=== PATIENT | female | born 1965 | race Caucasian/White ===

== ENCOUNTER → 2020-01-13 11:43 | Outpatient (BNVA) | payer BC, SELFPAY | PROVIDERS: Family Provider Internal Medicine; PCP Internal Medicine; Visit Provider Dermatology | DX: D48.9 Neoplasm of uncertain behavior, unspecified (principal) | CPT/HCPCS: 88304 ==

== ENCOUNTER 2023-05-19 10:57 | Inpatient (IN) | payer OTHER, SELFPAY ==
[2023-05-19] VITALS (19 sets, daily range): BP systolic 99–134; BP diastolic 65–96; PULSE 103–126; RESP 16–38; TEMP 36.3–36.5; O2SAT 90–98; BMI 48.2; BMI 48.4
--- NOTE | 2023-05-19 11:15 | XR_ITS ---
WS: [id number] Exam: XR chest 1V portable [id number] Date/Time of Exam: 05/19/2023 11:16 AM Reason For Exam: sob Comparison 05/06/2023. Cardiac enlargement unchanged. Less pulmonary vascular congestion than noted on the last exam. Small RIGHT basal pleural effusion. No pneumothorax. The mediastinum is normal in contour. Signs of previou s CABG surgery. An ICD superimposes the LEFT chest. Unremarkable bony structures. IMPRESSION: 1. Cardiac enlargement unchanged. Small RIGHT basal pleural effusion.
--- NOTE | 2023-05-19 11:21 | ED_ITS ---
HPI - General Adult 2 General: Chief complaint: General Medical Stated complaint: retaining fluid Time Seen by Provider: 05/19/23 11:13 Source: patient Mode of arrival: ambulatory Limitations: no limitations History of Present Illness: 57-year-old female who has a history of coronary artery disease along with A-fib states over the last 2 to 3 weeks she been retaining fluid. States she has gained 30 to 40 pounds she states her physician originally put her on 40 Lasix and upped it to 80 Lasix last week states she is still retaining fluid she had seen her physician Dr. Rose would send her to the ER for this. She has had some dyspnea especially activity she denies any chest pain she denies any fever cough does have a history of A-fib she is tachycardic here. Associated symptoms: Reports dyspnea; Deny chest pain, headache(s), nausea, rash or vomiting Review of Systems 2 Const: Denies: fever(s), chills, body aches or change in appetite ENMT: Denies: throat pain or dental pain Card: Denies: chest pain Resp: Reports: dyspnea; Denies: non-productive cough GI: Denies: abdominal pain, nausea, vomiting or diarrhea : Denies: dysuria Musc: Reports: extremity swelling; Denies: neck pain or back pain Skin/Breast: Denies: rash Neuro: Denies: headache(s) Psych: Denies: depression PFSH ED 2 PFSH: Medical History (Updated 05/19/23 @ 13:13 by Alva Rodriguez MD) H/O ventricular tachycardia Postoperative atrial fibrillation CAD (coronary artery disease) Diabetes Atrial fibrillation Ischemic cardiomyopathy Surgical History S/P CABG x 5 S/P ICD (internal cardiac defibrillator) procedure Family History Other CAD (coronary artery disease) Diabetes Social History Smoking and tobacco/nicotine status: former use of tobacco/nicotine Quit status (tobacco/nicotine): has quit using Year quit tobacco: 1988 Former quit date comment: 1/4 pack per day x 1 year Alcohol intake: never Substance/Drug Use: never Physical Exam 2 Const: COMMON NORMALS: patient oriented x3 GENERAL APPEARANCE: ill appearing HENMT: COMMON NORMALS: normocephalic and atraumatic HEAD & SCALP: n ormocephalic and atraumatic Eye: COMMON NORMALS: conjunctivae normal CONJUNCTIVA: Yes conjunctivae normal Neck/C-Spine: COMMON NORMALS: full ROM and supple Chest: COMMONS NORMALS: normal inspection of the chest Resp: COMMON NORMALS: normal respiratory effort, No retractions, No use of accessory muscles and clear to auscultation bilaterally AUSCULTATION: clear to auscultation bilaterally Cardio: COMMON NORMALS: No murmurs present (Cardio) RATE: tachycardic R HYTHM: abnormal rhythm irregularly irregular GI: COMMON NORMALS: Normal to inspection, nondistended, normoactive bowel sounds present, Soft to palpation, non-tender and no masses PALPATION: Yes Soft to palpation Extremity: COMMON NORMALS: full ROM NARRATIVE EXTREMITY EXAM: 2+ edema le Neuro: COMMON NORMALS: patient oriented x3, moves all extremities and no focal motor deficits Psych: COMMON NORMALS: mental status grossly normal, Normal thought process present and cooperative THOUGHT PROCESS: Normal thought process present Skin: COMMON NORMALS: no rashes or lesions noted and no wounds GENERAL SKIN EXAM: no rashes or lesions noted Course 2 Vital Signs: Vital signs: Vital Signs Temperature 97.3 F L 05/19/23 11:05 Pulse Rate 119 H 05/19/23 11:59 Respiratory Rate 20 H 05/19/23 11:21 Blood Pressure 118/96 05/19/23 11:59 Pulse Oximetry 97 05/19/23 11:59 Oxygen Delivery Me thod Room Air 05/19/23 11:59 MDM - General Adult Medical Decision Making Patient was with increasing fluid retention does have an elevated BNP likely CHF she is also in A-fib with RVR she is started on amiodarone drip. Was given IV Lasix I spoke to the hospitalist will admit at this time. Medical Records I reviewed the patient's medical records. Lab Data I reviewed the patient's lab results. 05/19/23 11:31 05/19/23 11:31 Laboratory Results WBC 8.34 10^3/uL (3.29-11.43) 05/19/23 11:31 RBC 4.83 10^6/uL (3.85-5.65) 05/19/23 11:31 Hgb 14.00 g/dL (11.27-16.99) 05/19/23 11:31 Hct 43.6 % (36-47) 05/19/23 11:31 MCV 90.3 fl (85-98) 05/19/23 11:31 MCH 29.0 pg (27-33) 05/19/23 11:31 MCHC 32.1 g/dL (30-55) 05/19/23 11:31 RDW 17.0 % (12.1-15.1) H 05/19/23 11:31 Plt Count 250 10^3/cmm (157-399) 05/19/23 11:31 MPV 9.4 fL (7.4-10.4) 05/19/23 11:31 Neut % (Auto) 78.2 % 05/19/23 11:31 Lymph % (Auto) 13.1 % 05/19/23 11:31 [place] % (Auto) 7.3 % 05/19/23 11:31 Eos % (Auto) 0.6 % 05/19/23 11:31 Baso % (Auto) 0.6 % 05/19/23 11:31 Neut # (Auto) 6.52 10^3/uL (1.8-7.7) 05/19/23 11:31 Lymph # (Auto) 1.1 10^3/uL (0.8-4.8) 05/19/23 11:31 [place] # (Auto) 0.6 10^3/uL (0.2-0.9) 05/19/23 11:31 Eos # (Auto) 0.1 10^3/uL (0.0-0.8) 05/19/23 11:31 Baso # (Auto) 0.1 10^3/uL (0.0-0.1) 05/19/23 11:31 Nucleated RBC % (auto) 0 % 05/19/23 11:31 Nucleated RBCs # 0.0 /100WBC 05/19/23 11:31 PT 15.70 SECONDS (12.1-14.9) H 05/19/23 11:31 INR 1.21 (0.8-1.2) H 05/19/23 11:31 Sodium 137 mmol/L (136-145) 05/19/23 11:31 Potassium 4.1 mmol/L (3.5-5.1) 05/19/23 11:31 Chloride 97 mmol/L (98-107) L 05/19/23 11:31 Carbon Dioxide 21 mmol/L (22-29) L 05/19/23 11:31 Anion Gap 23.1 (5-19) H 05/19/23 11:31 BUN 26 mg/dL (6-20) H 05/19/23 11:31 Creatinine 1.1 mg/dL (0.5-0.9) H 05/19/23 11:31 GFR Calculation 51.6 mL/min (90-130) L 05/19/23 11:31 Glucose 155 mg/dL (65-115) H 05/19/23 11:31 Calculated Osmolality 292 mOsm/kg (285-295) 05/19/23 11:31 Calcium 9.0 mg/dL (8.5-10.5) 05/19/23 11:31 Total Bilirubin 0.7 mg/dL (0.15-1.2) 05/19/23 11:31 AST 18 U/L (0-32) 05/19/23 11:31 ALT 12 U/L (0-33) 05/19/23 11:31 Alkaline Phosphatase 69 U/L (35-105) 05/19/23 11:31 Troponin T Baseline 32 ng/L (0-10) H 05/19/23 11:31 NT-Pro-B Natriuret Pep 7379 pg/mL (0-125) H 05/19/23 11:31 Total Protein 6.7 g/dL (6.6-8.7) 05/19/23 11:31 Albumin 3.9 g/dL (3.5-5.2) 05/19/23 11:31 Globulin 2.8 g/dL (1.3-4.6) 05/19/23 11:31 All radiology interpretation(s) finalized by discharge EKG Data EKG 1: I personally reviewed and interpreted this EKG as follows: EKG interpretation date: 05/19/23 EKG interpretation time: 11:25 Interpretation: atrial fib rvr hr [address] elevatin qrs 130 qtc 417 Critical Care Time 2 Critical Care Time: Critical Care Time: Yes Total Critical Care Time: 40 Attestation: The high probability of a clinically significant, sudden or life threatening deterioration of the patient's cv system(s) required my full and direct attention, intervention and personal management. The critical care time is as shown. This time is in addition to time spent performing any reported procedures but includes the following: [x] Data and vital sign review and interpretation [x] Patient assessment, examination and intervention [x] Documentation [x] Medication orders and management Discharge Plan Discharge Patient Disposition: Admitted As Inpatient Admit Provider: Angela Mcgraw Clinical Impression: Atrial fibrillation, CHF (congestive heart failure) Condition: Stable Coding Level of Care Code ED Mathematics Improvement Teacher for Vasquez Robledo
--- NOTE | 2023-05-19 11:25 | ECG_ITS ---
[facility] Test Date: 2023-05-19 Pat Name: Swati Castaneda Department: Room: Gender: Female Pigment Mixer: : 1965 Requested By: Alva Rodriguez Order Number: [id number] Feliciano MD: Yesi Colin M.D. Measurements Intervals [place] Rate: 122 P: 0 [place]: 0 QRS: 29 QRSD: 130 T: 264 QT: 344 QTc: 491 Interpretive Statements ATRIAL FLUTTER/TACHYCARDIA WITH RAPID VENTRICULAR RESPONSE MODERATE INTRAVENTRICULAR CONDUCTION DELAY [110+ ms QRS DURATION] ABNORMAL QRS-T ANGLE [QRS-T AXIS DIFFERENCE > 60] Compared to ECG 06/12/2018 09:06:39 Intraventricular conduction delay now present Sinus rhythm no longer present Ventricular premature complex(es) no longer present Myocardial infarct finding no longer present Electronically Signed On 05-20-2023 0:37:30 STOCK CHASER by Yesi Colin M.D. [id number]
[2023-05-19 11:41] LABS: Basophils # 0.1 10^3/uL (0.0-0.1); Basophils % 0.6 %; Eosinophils # 0.1 10^3/uL (0.0-0.8); Eosinophils % 0.6 %; Hematocrit 43.6 % (36-47); Lymphocytes # 1.1 10^3/uL (0.8-4.8); Lymphocytes % 13.1 %; Mean Corpuscular HGB Conc 32.1 g/dL (30-55); Mean Corpuscular Volume 90.3 fl (85-98); Mean Platelet Volume 9.4 fL (7.4-10.4); Monocytes # 0.6 10^3/uL (0.2-0.9); Monocytes % 7.3 %; Neutrophils # 6.52 10^3/uL (1.8-7.7); Neutrophils % 78.2 %; Nucleated Red Blood Cells % 0 %; Platelet Count 250 10^3/cmm (157-399); Red Blood Count 4.83 10^6/uL (3.85-5.65); White Blood Count 8.34 10^3/uL (3.29-11.43)
--- NOTE | 2023-05-19 11:45 | PC.PHAR ---
pt and pts states the pt just started the lasix 80mg daily on sat 05/17/23 rx filled 05/16/23 5d/s- pt was on 40mg daily filled 05/06/23 14d/s-pt states hasnt taken her otc meds for 2-3 weeks-pt states she hasnt taken her apsirin 81mg daily for 2 months or more-
[2023-05-19 11:51] LABS: INR 1.21 (0.8-1.2)
[2023-05-19 11:57] LABS: Troponin(5th) Baseline 32 ng/L (0-10)
[2023-05-19] MEDS: FUROsemide 10 mg/mL SDV 10mL 60 MG IVP (12:31)
[2023-05-19 12:37] LABS: Alanine Aminotransferase 12 U/L (0-33); Albumin Level 3.9 g/dL (3.5-5.2); Alkaline Phosphatase 69 U/L (35-105); Anion Gap 23.1 (5-19); Aspartate Amino Transferase 18 U/L (0-32); Blood Urea Nitrogen 26 mg/dL (6-20); Carbon Dioxide 21 mmol/L (22-29); Chloride 97 mmol/L (98-107); Creatinine Clr Calc Pharmacy 76.4496; Globulin 2.8 g/dL (1.3-4.6); Glomerular Filtration Rate 51.6 mL/min (90-130); Glucose 155 mg/dL (65-115); Osmolality Calculated 292 mOsm/kg (285-295); Potassium 4.1 mmol/L (3.5-5.1); Sodium 137 mmol/L (136-145); Total Bilirubin 0.7 mg/dL (0.15-1.2); Total Protein 6.7 g/dL (6.6-8.7)
[2023-05-19] MEDS: amiodarone 150 MG/100 ML PREMIX 400 MG IV (12:38)
[2023-05-19 12:41] LABS: NT Pro B Type Natriuretic Pept 7379 pg/mL (0-125)
--- NOTE | 2023-05-19 13:22 | ECG_ITS ---
[facility] Test Date: 2023-05-19 Pat Name: Swati Castaneda Department: Room: 101 Gender: Female Security Operations Manager: : 1965 Requested By: Alva Rodriguez Order Number: [id number] Feliciano MD: Yesi Colin M.D. Measurements Intervals Wayne Rate: 115 P: 40 HI: 135 QRS: 18 QRSD: 133 T: 239 QT: 372 QTc: 516 Interpretive Statements SINUS TACHYCARDIA WITH OCCASIONAL VENTRICULAR PREMATURE COMPLEXES INTRAVENTRICULAR CONDUCTION DELAY [130+ ms QRS DURATION] Compared to ECG 05/19/2023 11:25:57 Ventricular premature complex(es) now present Atrial flutter no longer present Electronically Signed On 05-20-2023 1:00:42 FIELD CROP FARMER by Yesi Colin M.D. [id number]
[2023-05-19 13:49] LABS: Troponin 5 2HR 30.31 ng/L (0-10)
[2023-05-19 13:50] LABS: Troponin 5 2HR Delta -1.69 ABS# (0-10)
--- NOTE | 2023-05-19 14:19 | P.HP_ITS ---
Providers/Chief Complaint 2 Admitting Physician: Angela Mcgraw MD Primary Care Provider: Rc Rose DO Chief Complaint: retaining fluid History of Present Illness Swati Castaneda is a 57 year old female with past medical history of CAD, CABG x 5, EF 45 to 50%, CHF systolic, ICD in place, history of atrial fibrillation that was postop transient and did not recur thereafter presented to the hospital today with complaint of shortness of breath. She was given 60 Lasix IV in the ER. Appeared fluid overloaded and was dyspneic however not hypoxic. BNP 7300. Patient was started on amiodarone drip. Admitted to cardiac stepdown unit for further management. Patient seen in her room at this time resting comfortably in bed. No acute distress. She states that for the last 2 to 3 weeks she feels she is retaining fluid. She has gained almost 30 pounds. She saw her primary care doctor who put her on Lasix 40 daily and recently increased it to 80 last week however she says she is still retaining fluid. She went to see her primary care doctor and she was sent to the ER thereafter. Medications/Allergies Home Medications Medication Instructions Recorded Confirmed Last Taken Type magnesium oxide 250 mg PO BEDTIME 09/16/22 05/19/23 3 Weeks Ago History ~04/28/23 albuterol sulfate 90 mcg/actuation 2 puff inhalation QID PRN 05/19/23 05/19/23 2 Weeks Ago History aerosol inhaler Shortness Of Breath ~05/05/23 ascorbic acid (vitamin C) 500 mg 500 mg PO DAILY 05/19/23 05/19/23 2 Weeks Ago History tablet (Vitamin C) ~05/05/23 furosemide 80 mg tablet (Lasix) 80 mg PO QAM 05/19/23 05/19/23 05/19/23 History started sat 05/17/23 potassium chloride 20 mEq 20 meq PO QAM 05/19/23 05/19/23 05/19/23 History tablet,extended release zinc acetate 50 mg (zinc) capsule 50 mg PO DAILY 05/19/23 05/19/23 2 Weeks Ago History ~05/05/23 Allergies Allergy/AdvReac Type Severity Reaction Status Date / Time Penicillins Allergy ALGY-Rash Verified 05/19/23 11:04 PFSH Acute 2 PFSH: Medical History (Updated 02/26/24 @ 14:37 by Angela Mcgraw MD) H/O ventricular tachycardia Postoperative atrial fibrillation CAD (coronary artery disease) Diabetes Atrial fibrillation Ischemic cardiomyopathy Surgical History S/P CABG x 5 S/P ICD (internal cardiac defibrillator) procedure Family History Other CAD (coronary artery disease) Diabetes Social History Smoking and tobacco/nicotine status: former use of tobacco/nicotine Quit status (tobacco/nicotine): has quit using Year quit tobacco: 1988 Former quit date comment: 1/4 pack per day x 1 year Alcohol intake: never Substance/Drug Use: never Vitals/I&O/Wt Last Vital Signs Temp 97.3 F L 05/19/23 14:08 Pulse 114 H 05/19/23 14:08 Resp 20 H 05/19/23 14:08 BP 119/75 05/19/23 14:08 Pulse Ox 94 05/19/23 14:08 O2 Del Method Room Air 05/19/23 13:11 05/18/23 05/19/23 05/19/23 22:59 06:59 14:59 Intake Total 100 / 100 Balance 100 / 100 Weight last 48 hrs Weight 127.941 kg Weight 127.459 kg Physical Exam 2 Narrative: General: Alert oriented x3, patient seen in bed resting comfortably HEENT: Normocephalic, atraumatic, EOMI, breathing room air Cardio: Irregularly irregular, tachycardic normal S1-S2, Respiratory: Mild crackles at bases bilaterally GI: Abdomen soft, nontender, nondistended, bowel sounds + Behavior: Appropriate and cooperative Extremities: 2+ pitting edema bilateral lower extremities Urinary Catheter Management: [place]: Cath Placed During This Visit: yes Urinary Catheter Date of Insertion: 05/19/23 Urinary Catheter Time of Insertion: 12:57 Data 05/19/23 11:31 05/19/23 11:31 A&P Assessment and plan (1) CHF (congestive heart failure): (2) CAD (coronary artery disease): Qualifiers: Associated angina: without angina Coronary Disease-Associated Artery/Lesion type: bypass graft [place] vs. transplanted heart: [place] heart Qualified Code(s): I25.810 - Atherosclerosis of coronary artery bypass graft(s) without angina pectoris (3) Atrial fibrillation: (4) ICD (implantable cardioverter-defibrillator) in place: (5) Ischemic cardiomyopathy: (6) Diabetes: (7) Chronic kidney disease: (8) High anion gap metabolic acidosis: Plan #A-fib with RVR #History of CAD, CABG x 5 #Acute on chronic congestive systolic heart failure #Diabetes mellitus type 2 #History of postop atrial fibrillation #History of ventricular tachycardia, ICD in place. #CKD, baseline creatinine unknown ? Creatinine 1.1 today. Continue to monitor. ? Check echo ? Continue amiodarone drip ? Check potassium, magnesium ? Received Lasix 60 IV x 1 in ER ? Placed on Lasix 40 IV twice daily ? Check BMP daily. Lasix put patient on high risk for hypokalemia. Will need to monitor ? Check TSH ? BNP 7300. On admission ? Check urinalysis, ? DuoNeb every 6 6 hours as needed ? Check procalcitonin ? Anion gap elevated at 23.1. I will check lactic acid. Bicarb is 21. ? Chest x-ray does show evidence of pulmonary vascular congestion. No true infiltrate seen ? Sliding scale insulin low-dose intensity ? Cardiac diabetic diet ? Placed on therapeutic Lovenox at this time. She will need to be transition to Eliquis at discharge Full code DVT prophylaxis: On therapeutic Lovenox Attestations 2 Medical Necessity Statement*: Requires inpatient hospitalization for atrial fibrillation with RVR and high anion gap Diagnoses CHF (congestive heart failure) I50.9 Coronary artery disease involving coronary bypass graft of [place] heart without angina pectoris I25.810 Associated angina: without angina Coronary Disease-Associated Artery/Lesion type: bypass graft [place] vs. transplanted heart: [place] heart Atrial fibrillation I48.91 ICD (implantable cardioverter-defibrillator) in place Z95.810 Ischemic cardiomyopathy I25.5 Diabetes E11.9 Chronic kidney disease N18.9 High anion gap metabolic acidosis E87.29
--- NOTE | 2023-05-19 14:25 | PC.NURSE ---
hospitalist notified on pt's arrival from ER Pt arrived from ER with Amio drip running at 1 mg/hr per protocol. Pt denies any chest pain or discomfort. generalized swelling and leg swelling noted. [place] catheter intact and flowing. call light provided to pt. at bedside.
[2023-05-19] MEDS: enoxaparin 150 mg/mL Syringe 130 MG SUBCUT (14:43)
[2023-05-19 14:58] LABS: Estmated Average Glucose 154
[2023-05-19 15:01] LABS: Lactic Sepsis W/Reflex 2.7 mmol/L (0.5-2.2)
--- NOTE | 2023-05-19 15:10 | USCV_ITS ---
Swati Castaneda Age: 57 Gender: F : 1965 Exam Date: 05/19/2023 19:28 Ordering Phys: Angela Mcgraw MD Technologist: TAMEKA [place]am [place] [facility] [place] [facility] [place] Indication: Heart failure, history of CAD s/p CABG and pacer, defibrillator 2016. BP: 134 / 89 HR: 103 Rhythm: Atral fibrillation Technical Quality: Adequate MEASUREMENTS (Male / Female) Normal Values 2D ECHO LV Diastolic Diameter PLAX 5.5 cm 4.2 - 5.9 / 3.9 - 5.3 cm IVS Diastolic Thickness 1.1 cm 0.6 - 1.0 / 0.6 - 0.9 cm IVS Systolic Thickness 0.9 cm LVPW Diastolic Thickness 1.1 cm 0.6 - 1.0 / 0.6 - 0.9 cm LVPW Systolic Thickness 1.2 cm LVOT Diameter 1.7 cm LV Ejection Fraction 2D Teich 5.5 % LV Ejection Fraction MOD 2C 11.0 % LV Ejection Fraction 2C AL 0.0 % LA Diameter 4.6 cm Aorta at Sinotubular Diameter 2.9 cm IVC Diameter 2.4 cm M-MODE LA Ao Ratio MM 1.4 AV Cusp Separation MM 1.7 cm DOPPLER AV Peak Velocity 93.0 cm/s LVOT Peak Velocity 49.0 cm/s AV Area Cont Eq vti 1.1 cm squared AV Area Cont Eq pk 1.2 cm squared MV Peak Velocity 107.0 cm/s MV Area PHT 6.1 cm squared Mitral E to A Ratio 0.0 TV Peak Velocity 276.5 cm/s TR Peak Velocity 304.0 cm/s TR Peak Gradient 37.0 mmHg TV Peak E Velocity 97.0 cm/s Right Atrial Pressure 10.0 mmHg Pulmonary Artery Systolic Pressu 47.0 mmHg PV Peak Velocity 60.0 cm/s FINDINGS Left Ventricle Left ventricle is dilated. LV systolic function is severely reduced with EF of 10-15%. Severe global hypokinesis. Right Ventricle Grossly hypokinetic. Pacemaker lead seen. Right Atrium Normal in size Left Atrium Dilated Mitral Valve Structurally normal mitral valve. Moderate mitral regurgitation. Aortic Valve Structurally normal aortic valve. No significant stenosis. Trace aortic regurgitation. Tricuspid Valve Moderate to severe tricuspid regurgitation. RVSP is 45 to 40 mmHg. This is consistent with moderate pulmonary hypertension. Pulmonic Valve Not well visualized Pericardium Pleural effusion is noted Aorta Normal in size IVC Appears dilated CONCLUSIONS Left ventricle is dilated. LV systolic function is severely reduced with EF of 10 to 15%. Grossly hypokinetic RV. Left atrial dilation Moderate mitral regurgitation Moderate to severe tricuspid regurgitation. Moderate pulmonary hypertension Pleural effusion is noted IVC appears dilated Compared to prior echocardiogram from 2017, LV systolic function has decreased significantly and is severely reduced. Khanh Lamb MD (Electronically Signed) Final Date: 20 May 2023 10:52 S
[2023-05-19 15:11] LABS: Procalcitonin 0.06 ng/mL (0-0.5); Thyroid Stimulating Hormone 2.19 uIU/mL (0.27-4.20)
--- NOTE | 2023-05-19 15:13 | CTR_ITS ---
PROCEDURE INFORMATION: Exam: CT Chest Without Contrast; Diagnostic Exam date and time: 05/19/2023 3:33 PM Age: 57 years old Clinical indication: Other: Retaining fluid, elevated lactic acid TECHNIQUE: Imaging protocol: Diagnostic computed tomography of the chest without contrast. Radiation optimization: All CT scans at this facility use at least one of these dose optimization techniques: automated exposure control; mA and/or kV adjustment per patient size (includes targeted exams where dose is matched to clinical indication); or iterative reconstruction. COMPARISON: CR XR chest 1V portable [id number] 05/19/2023 11:37 AM RADIATION DOSE METRICS: Total DLP (mGy-cm): 1382.19 FINDINGS: Tubes, catheters and devices: Cardiac ICD/pacemaker. Thyroid: No significant thyroid pathology. Lungs: Atelectasis is present in the lower lobe subjacent to the effusions. Mild apical septal thickening and vascular congestion. Pleural spaces: Moderate bilateral pleural effusions. Heart: Localized area of the left ventricular calcifications present mild bulging of the ventricular wall as seen on series 3, image 40. Cardiomegaly. Coronary arteries: Coronary artery calcifications. Lymph nodes: Mediastinal lymphadenopathy is present. Precarinal lymph nodes measuring 1.9 cm short axis. Mild right hilar adenopathy measuring up to 1.2 cm short axis. No left hilar or axillary lymphadenopathy. Vasculature: No evidence of thoracic aortic aneurysm. Bones/joints: Prior median sternotomy. Soft tissues: Unremarkable. PROCEDURE INFORMATION: Exam: CT Abdomen And Pelvis Without Contrast Exam date and time: 05/19/2023 3:33 PM Age: 57 years old Clinical indication: Other: Retaining fluid, elevated lactic acid TECHNIQUE: Imaging protocol: Computed tomography of the abdomen and pelvis without contrast. Radiation optimization: All CT scans at this facility use at least one of these dose optimization techniques: automated exposure control; mA and/or kV adjustment per patient size (includes targeted exams where dose is matched to clinical indication); or iterative reconstruction. COMPARISON: CR XR chest 1V portable [id number] 05/19/2023 11:37 AM RADIATION DOSE METRICS: Total DLP (mGy-cm): 1382.19 FINDINGS: Lungs: Visualized lung bases are free of significant pathology. Diaphragm: Small hiatal hernia. Liver: Hepatic steatosis. Gallbladder and bile ducts: Cholelithiasis. No biliary dilatation. Pancreas: No significant pancreatic pathology. Spleen: No significant splenic pathology. Adrenal glands: No significant adrenal pathology. Kidneys and ureters: No significant renal pathology. Stomach and bowel: No significant pathology. Appendix: No appendiceal pathology evident. Intraperitoneal space: Moderate abdominopelvic ascites. Vasculature: No abdominal aortic aneurysm. Lymph nodes: Mild right inguinal lymphadenopathy measuring 1.3 cm short axis. Borderline sized left inguinal lymph node. Urinary bladder: Urinary bladder is decompressed by [place] catheter limiting assessment of the wall. Reproductive: No significant uterine pathology. No significant adnexal pathology. Bones/joints: Mild degenerative change present in the spine. Soft tissues: Anasarca. CT/[place] [id number] IMPRESSION: 1. Findings compatible with congestive failure and/or fluid overload. Moderate bilateral pleural effusions. 2. Mediastinal and right hilar lymphadenopathy. 3. Focal area of left ventricular wall calcification and contour abnormality suggesting prior infarct. Clinical correlation recommended. IMPRESSION: 1. No acute pathology. 2. Anasarca with moderate abdominopelvic ascites. 3. Hepatic steatosis. 4. Cholelithiasis. 5. Mild right and borderline left inguinal lymphadenopathy.
[2023-05-19 15:22] LABS: Cholesterol 159 mg/dL (0-200); HDL Cholesterol 37 mg/dL (60-100); LDL Cholesterol Calculated 96 mg/dL (50-129); LDL HDL Ratio 2.59 RATIO (0.00-3.22); Magnesium 1.9 mg/dL (1.7-2.3); Triglycerides 128 mg/dL (0-150)
[2023-05-19 16:30] LABS: Reflex Lactate Order REFLEX LACTIC ORDERD
[2023-05-19 17:22] LABS: Lactic Acid level (Lactate) 2.9 mmol/L (0.5-2.2)
[2023-05-19 18:35] LABS: Troponin 5 6HR 37.25 ng/L (0-10); Troponin 5 6HR Delta 5.25 ng/L (0-12)
--- NOTE | 2023-05-19 21:30 | PC.NURSE ---
At change of shift patient was noted to have bloody urine in meyer catheter bag. Patient states when she went for CAT scan her meyer had gotten tugged. Nurse had discussed monitoring urine to see if it clears or if it didnt might need to be irrigated. At this time patient stated she has the urge to urinate and feels pressure but is unable, states this started after meyer got tugged. Before meyer was tugged patient states there was no pressure or urge. Nurse attempted to reposition and advance catheter but were unable, meyer removed at this time due to discomfort. Patient asking nurse to leave meyer out. Nurse told patient she can get OOB to commode and we will measure urine output, if she is unable to urinate after next lasix dose her meyer catheter may need to be reinserted. Patient agrees with plan.
--- NOTE | 2023-05-19 22:16 | ECG_ITS ---
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 Measurements Intervals [place] Rate: 102 P: 3 DC: 124 QRS: 9 QRSD: 137 T: 179 QT: 407 QTc: 532 Interpretive Statements SINUS TACHYCARDIA INTRAVENTRICULAR CONDUCTION DELAY [130+ ms QRS DURATION] Compared to ECG 05/19/2023 13:22:18 Ventricular premature complex(es) no longer present Electronically Signed On 05-20-2023 0:44:22 LAP RUNNER by Yesi Colin M.D. [email or web address] Artsadena [email or web address] [email or web address]/store/[id number]
--- NOTE | 2023-05-19 22:20 | PC.NURSE ---
called and spoke with nurse regarding patients heart rate. Patient had converted to SR but is still tachycardia. said get EKG to confirm if patient converted to SR. If patient is still in afib give one time dose of digoxin but if patient is in SR do not give. Nurse did confirm with EKG patient is in SR so digoxin was not given. Cardiology consult was also ordered.
[2023-05-19] MEDS: FUROsemide 10 mg/mL SDV 4mL 40 MG IVP (22:21)
[2023-05-20] VITALS (32 sets, daily range): BP systolic 97–138; BP diastolic 53–92; PULSE 88–119; RESP 16–38; TEMP 36.3–37.2; O2SAT 88–100
[2023-05-20 00:13] LABS: Urine Color Brown (Yellow)
[2023-05-20 00:14] LABS: Add Urine Microscopic? YES; Bilirubin Urine Neg (Negative); Blood Urine 3+ (Negative); Glucose Urine UA Norm (Normal); Ketones Urine 1+ (Negative); Leukocyte Esterase Urine Negative (Negative); Nitrate Urine Negative (Negative); Protein Urine 3+ (Negative); Specific Gravity, Urine 1.025 (1.005-1.030); Urine Appearance Turbid (CLEAR); Urobilinogen Urine Norm (Negative); pH Urine 5 (5-7)
[2023-05-20 00:15] LABS: Bacteria Urine 1+ /hpf; RBC Urine TOO NUMEROUS TO CNT /hpf (0-2); Squamous Epithelial Cell Urine 0-4 /hpf (0-5); WBC Urine 0-4 /hpf (0-5)
[2023-05-20 00:17] LABS: Add Urine Culture? Yes
--- NOTE | 2023-05-20 02:30 | PC.NURSE ---
Patient only urinated 225 since administration of IV lasix. Last two attempts only voided 75ml and than 50ml at a time. Nurse discussed with patient reinserting the meyer catheter to ensure bladder is emptying. Bladder scan not attempted due to patient body habbitus and anasarca. Meyer was reinserted using aseptic technique, blood tinged urine returned. Patient denied any discomfort.
[2023-05-20] MEDS: enoxaparin 150 mg/mL Syringe 130 MG SUBCUT ×2 (03:44→15:32)
[2023-05-20 05:16] LABS: Basophils # 0.1 10^3/uL (0.0-0.1); Basophils % 0.6 %; Eosinophils # 0.1 10^3/uL (0.0-0.8); Eosinophils % 0.6 %; Hematocrit 39.7 % (36-47); Lymphocytes # 1.5 10^3/uL (0.8-4.8); Lymphocytes % 18.3 %; Mean Corpuscular HGB Conc 32.2 g/dL (30-55); Mean Corpuscular Hemoglobin 29.1 pg (27-33); Mean Corpuscular Volume 90.2 fl (85-98); Mean Platelet Volume 9.3 fL (7.4-10.4); Monocytes # 0.8 10^3/uL (0.2-0.9); Neutrophils # 5.81 10^3/uL (1.8-7.7); Neutrophils % 69.9 %; Nucleated Red Blood Cells % 0 %; Platelet Count 225 10^3/cmm (157-399); Red Cell Distribution Width 17.2 % (12.1-15.1); White Blood Count 8.31 10^3/uL (3.29-11.43)
[2023-05-20 05:39] LABS: Alanine Aminotransferase 12 U/L (0-33); Albumin Level 3.5 g/dL (3.5-5.2); Alkaline Phosphatase 53 U/L (35-105); Anion Gap 20.5 (5-19); Aspartate Amino Transferase 18 U/L (0-32); Blood Urea Nitrogen 26 mg/dL (6-20); Calcium 8.5 mg/dL (8.5-10.5); Carbon Dioxide 23 mmol/L (22-29); Chloride 99 mmol/L (98-107); Creatinine Clr Calc Pharmacy 65.6688; Globulin 2.8 g/dL (1.3-4.6); Glomerular Filtration Rate 42.5 mL/min (90-130); Glucose 144 mg/dL (65-115); Osmolality Calculated 295 mOsm/kg (285-295); Potassium 3.5 mmol/L (3.5-5.1); Sodium 139 mmol/L (136-145); Total Bilirubin 0.5 mg/dL (0.15-1.2); Total Protein 6.3 g/dL (6.6-8.7)
[2023-05-20 05:44] LABS: NT Pro B Type Natriuretic Pept 9304 pg/mL (0-125)
--- NOTE | 2023-05-20 08:26 | P.CONIM_ITS ---
Providers/Reason For Consult 2 Consulting Physician/Specialty*: Khanh Lamb MD/ Cardiology Reason for Consult*: Congestive heart failure Requesting Physician: Dr Mcgraw Attending Physician: Angela Mcgraw MD Primary Care Provider: Rc Rose DO History of Present Illness History of Present Illness Swati Castaneda is a 57 year old female with past medical history of CAD s/p CABG x 5, ICD in place, systolic congestive heart failure last known EF of 45 to 50% presented to hospital with shortness of breath. Also was feeling palpitations. Telemetry currently shows sinus tachycardia. 1 EKG is suspicious for possible atrial flutter. Patient did have history of postop atrial fibrillation. Echo performed during this admission is showing severely reduced LV systolic function with EF of 10-15 %. He denies chest pain. NT proBNP is worse over 7000. Troponins have not trended up Review of Systems 2 Const: Denies: fever(s), chills, body aches or change in appetite ENMT: Denies: throat pain or dental pain Card: Denies: chest pain Resp: Reports: dyspnea; Denies: non-productive cough GI: Denies: abdominal pain, nausea, vomiting or diarrhea : Denies: dysuria Musc: Reports: extremity swelling; Denies: neck pain or back pain Skin/Breast: Denies: rash Neuro: Denies: headache(s) Psych: Denies: depression Medications/Allergies Home Medications Medication Instructions Recorded Confirmed Last Taken Type magnesium oxide 250 mg PO BEDTIME 09/16/22 05/19/23 3 Weeks Ago History ~04/28/23 albuterol sulfate 90 mcg/actuation 2 puff inhalation QID PRN 05/19/23 05/19/23 2 Weeks Ago History aerosol inhaler Shortness Of Breath ~05/05/23 ascorbic acid (vitamin C) 500 mg 500 mg PO DAILY 05/19/23 05/19/23 2 Weeks Ago History tablet (Vitamin C) ~05/05/23 furosemide 80 mg tablet (Lasix) 80 mg PO QAM 05/19/23 05/19/23 05/19/23 History started sat 05/17/23 potassium chloride 20 mEq 20 meq PO QAM 05/19/23 05/19/23 05/19/23 History tablet,extended release zinc acetate 50 mg (zinc) capsule 50 mg PO DAILY 05/19/23 05/19/23 2 Weeks Ago History ~05/05/23 Allergies Allergy/AdvReac Type Severity Reaction Status Date / Time Penicillins Allergy ALGY-Rash Verified 05/19/23 11:04 Current Medications Generic Name Dose Route Start Last Admin Trade Name Nadine PRN Reason Stop Dose Admin Enoxaparin Sodium 130 mg 05/19/23 14:30 05/20/23 03:44 Enoxaparin 150 Mg/Ml Syringe SUBCUT 130 mg Q12H DENA Administration Amiodarone HCl/Dextrose 360 mg in 200 mls @ 0 mls/hr 05/19/23 11:34 05/20/23 06:53 Nexterone IV 0.5 mg/min .Q0M DENA 16.67 mls/hr Administration Protocol Per Protocol PFSH Acute 2 PFSH: Medical History H/O ventricular tachycardia Postoperative atrial fibrillation CAD (coronary artery disease) Diabetes Atrial fibrillation Ischemic cardiomyopathy Surgical History S/P CABG x 5 S/P ICD (internal cardiac defibrillator) procedure Family History Other CAD (coronary artery disease) Diabetes Social History Smoking and tobacco/nicotine status: former use of tobacco/nicotine Quit status (tobacco/nicotine): has quit using Year quit tobacco: 1988 Former quit date comment: 1/4 pack per day x 1 year Alcohol intake: never Substance/Drug Use: never Vitals/I&O/Wt Last Vital Signs Temp 97.4 F L 05/20/23 07:20 Pulse 98 05/20/23 07:20 Resp 18 05/20/23 07:20 BP 101/80 05/20/23 07:20 Pulse Ox 95 05/20/23 07:20 O2 Del Method Nasal Cannula 05/20/23 04:00 05/19/23 05/20/23 05/20/23 22:59 06:59 14:59 Intake Total 200 / 300 396.15 / 696.15 Output Total 450 / 450 350 / 800 Balance -250 / -150 46.15 / -103.85 Weight last 48 hrs Weight 288 lb Weight 282 lb 1 oz Weight 281 lb Physical Exam 2 Narrative: GENERAL: Patient is alert, awake and oriented x3. [] NECK: No jugular vein distension. [] HEENT: No cyanosis. No icterus. No pallor. [] HEART: Regular S1 and S2. No murmur, rub or gallop. [] LUNGS: Diminished air entry bilaterally CENTRAL NERVOUS SYSTEM: Grossly nonfocal. [] EXTREMITIES: Lower extremities with 1+ edema bilaterally. Urinary Catheter Management: [place]: Cath Placed During This Visit: yes, but has since been removed by the nurse Reason for Continuing Indwelling Catheter: Acute Urinary Retention or Obstruction Urinary Catheter Date of Insertion: 05/20/23 Urinary Catheter Time of Insertion: 02:15 Date Urinary Catheter Removed: 05/19/23 Time Urinary Catheter Discontinued: 21:00 Data 05/21/23 04:40 05/21/23 04:40 A&P Assessment and plan (1) Ischemic cardiomyopathy: (2) ICD (implantable cardioverter-defibrillator) in place: (3) CAD (coronary artery disease): Qualifiers: Coronary Disease-Associated Artery/Lesion type: bypass graft [place] vs. transplanted heart: [place] heart Associated angina: without angina Qualified Code(s): I25.810 - Atherosclerosis of coronary artery bypass graft(s) without angina pectoris (4) CHF (congestive heart failure): (5) Atrial fibrillation: Plan Patient is significantly volume overloaded in setting of severely reduced LV systolic function. This is a change from before. She will need ischemic workup once stable. For now to diurese her aggressively with aim to get her euvolemic. We will start a dobutamine gtt. at 2.5mcg Uptitrate lasix to IV 40mg TID and will increase further to 60TID tomorrow Continue amiodarone gtt for today Device interrogation requested as will confirm presence of atrial fibrillation. Continue anticoagulation Renal dysfunction likely secondary to congestion. Monitor close I&O's. Monitor renal function. Thank you for involving us with care of this patient. We will continue to follow. Please call with questions. Consult Attestations 2 Medical Necessity Statement: Care expected to cross 2 midnights. Coding Level of Care Code Acute Code for [facility] Diagnoses Ischemic cardiomyopathy I25.5 ICD (implantable cardioverter-defibrillator) in place Z95.810 Coronary artery disease involving coronary bypass graft of [place] heart without angina pectoris I25.810 Coronary Disease-Associated Artery/Lesion type: bypass graft [place] vs. transplanted heart: [place] heart Associated angina: without angina CHF (congestive heart failure) I50.9 Atrial fibrillation I48.91
--- NOTE | 2023-05-20 08:30 | PC.NURSE ---
Patient transferred to ICU 10. Patient belongings were sent with her. ( [place], Phone, Phone language path, [place], clothing, and shoes.) Patient informed of transfer. Vital signs stable upon transfer.
--- NOTE | 2023-05-20 08:51 | PC.NURSE ---
Called and gave report to Radha YOUNG in ICU, patient will be transported to ICU by Diana YOUNG.
[2023-05-20] MEDS: DOBUTamine drip 500 MG/250 ML PREMIX 9.80000000000000071 MG IV (09:43)
[2023-05-20] MEDS: FUROsemide 10 mg/mL SDV 4mL 40 MG IVP ×2 (10:33→15:32)
[2023-05-20] MEDS: pantoprazole DR 40 mg Tablet PO (10:33)
[2023-05-20] MEDS: calcium carbonate 500 mg Chew Tablet PO ×2 (11:55→16:56)
--- NOTE | 2023-05-20 12:38 | PM.PN ---
Subjective Subjective: Seen this morning. Patient resting comfortably in recliner. She says she slightly feels better in terms of her breathing however the abdominal edema is still bothering her. Echo reveals EF of 10 to 15%. BNP 9300 this morning. UA positive for RBCs, 1+ bacteria. Yesterday when she went for CAT scan there was some traumatic pull on the [place] therefore patient had some hematuria. She had requested to remove the [place] after that. She has been counseled and educated on adequate urine output. She was also seen by cardiology this morning. Creatinine 1.3, and gap 20.5. Patient was moved over to ICU for initiation of dobutamine drip. Urine output overnight 700 cc. Denies any chest pain or active shortness of breath at this time. EKG shows sinus rhythm with PACs. No longer in A-fib. ICD interrogation complete. Report pending at this time. Vitals/I&O/Wt Last Vital Signs Temp 97.4 F L 05/20/23 07:20 Pulse 100 05/20/23 08:43 Resp 18 05/20/23 08:43 BP 101/80 05/20/23 07:20 Pulse Ox 95 05/20/23 08:43 O2 Del Method Room Air 05/20/23 08:43 05/19/23 05/20/23 05/20/23 22:59 06:59 14:59 Intake Total 200 / 300 396.15 / 696.15 135.285 / 135.285 Output Total 450 / 450 350 / 800 Balance -250 / -150 46.15 / -103.85 135.285 / 135.285 Weight last 48 hrs Weight 130.635 kg Weight 127.941 kg Weight 127.459 kg Physical Exam Narrative: General: Alert oriented x3, patient seen in bed resting comfortably HEENT: Normocephalic, atraumatic, EOMI, breathing room air Cardio: Irregularly irregular, tachycardic normal S1-S2, Respiratory: Mild crackles at bases bilaterally GI: Abdomen soft, nontender, nondistended, bowel sounds + Behavior: Appropriate and cooperative Extremities: 2+ pitting edema bilateral lower extremities Urinary Catheter Management: [place]: Cath Placed During This Visit: yes, but has since been removed by the nurse Reason for Continuing Indwelling Catheter: Acute Urinary Retention or Obstruction Urinary Catheter Date of Insertion: 05/20/23 Urinary Catheter Time of Insertion: 02:15 Date Urinary Catheter Removed: 05/19/23 Time Urinary Catheter Discontinued: 21:00 Data 05/20/23 04:10 05/20/23 04:10 A&P Assessment and plan (1) CHF (congestive heart failure): (2) CAD (coronary artery disease): Qualifiers: Coronary Disease-Associated Artery/Lesion type: bypass graft [place] vs. transplanted heart: [place] heart Associated angina: without angina Qualified Code(s): I25.810 - Atherosclerosis of coronary artery bypass graft(s) without angina pectoris (3) Atrial fibrillation: (4) ICD (implantable cardioverter-defibrillator) in place: (5) Ischemic cardiomyopathy: (6) Diabetes: (7) Chronic kidney disease: (8) High anion gap metabolic acidosis: Plan #A-fib with RVR?resolved #History of CAD, CABG x 5 #Acute decompensated on chronic congestive systolic heart failure #Worsening heart failure, EF 10 to 15% #Diabetes mellitus type 2 #History of postop atrial fibrillation #History of ventricular tachycardia, ICD in place. #CKD, baseline creatinine unknown ? Creatinine 1.1 today. Continue to monitor. ? Check echo. Left ventricle is dilated. LV systolic function is severely reduced with EF of 10 to 15%. Grossly hypokinetic RV. Left atrial dilation Moderate mitral regurgitation Moderate to severe tricuspid regurgitation. Moderate pulmonary hypertension Pleural effusion is noted IVC appears dilated Compared to prior echocardiogram from 2017, LV systolic function has decreased significantly and is severely reduced. ? Stop amiodarone drip at this point. ? Check potassium, magnesium ? Received Lasix 60 IV x 1 in ER ? Escalate Lasix to 40 3 times daily ? Placed on dobutamine drip 2.5 - Will add levophed drip as well ? Check BMP daily. Lasix put patient on high risk for hypokalemia. Will need to monitor ? Check TSH ? BNP 7300. On admission. 9300 today. ? Check urinalysis, positive for RBCs. Traumatic [place] ? DuoNeb every 6 6 hours as needed ? Patient does have elevated lactic acidosis which is most likely secondary to her worsening heart failure which carries a poor prognosis overall. ? Chest x-ray does show evidence of pulmonary vascular congestion. No true infiltrate seen ? Sliding scale insulin low-dose intensity ? Cardiac diabetic diet ? Will continue on therapeutic Lovenox at this time. ? Patient will need an ischemic workup once stable from a fluid standpoint. ? Consult cardiology. Recommendations appreciated. ? Continue ICU level care. ? She carries a high risk for decompensation and is at high risk for ventricular arrhythmia including but not limited to . Full code DVT prophylaxis: On therapeutic Lovenox Attestations Medical Necessity Statement*: Patient is critically ill with worsening heart failure and elevated lactic acid requiring ICU stay for dobutamine drip along with Lasix for diuresis. Diagnoses CHF (congestive heart failure) I50.9 Coronary artery disease involving coronary bypass graft of [place] heart without angina pectoris I25.810 Coronary Disease-Associated Artery/Lesion type: bypass graft [place] vs. transplanted heart: [place] heart Associated angina: without angina Atrial fibrillation I48.91 ICD (implantable cardioverter-defibrillator) in place Z95.810 Ischemic cardiomyopathy I25.5 Diabetes E11.9 Chronic kidney disease N18.9 High anion gap metabolic acidosis E87.29
[2023-05-21] VITALS (51 sets, daily range): BP systolic 91–137; BP diastolic 60–97; PULSE 92–114; RESP 14–42; TEMP 36–37.1; O2SAT 87–98
[2023-05-21] MEDS: FUROsemide 10 mg/mL SDV 4mL 40 MG IVP (00:26)
[2023-05-21] MEDS: enoxaparin 150 mg/mL Syringe 130 MG SUBCUT ×2 (03:13→15:26)
[2023-05-21] MEDS: DOBUTamine drip 500 MG/250 ML PREMIX 9.80000000000000071 MG IV (05:03)
[2023-05-21 05:05] LABS: Basophils % 0.5 %; Eosinophils # 0.1 10^3/uL (0.0-0.8); Eosinophils % 0.9 %; Hematocrit 36.6 % (36-47); Lymphocytes # 0.9 10^3/uL (0.8-4.8); Lymphocytes % 14.6 %; Mean Corpuscular HGB Conc 32.8 g/dL (30-55); Mean Corpuscular Hemoglobin 29.1 pg (27-33); Mean Corpuscular Volume 88.6 fl (85-98); Mean Platelet Volume 9.2 fL (7.4-10.4); Monocytes # 0.5 10^3/uL (0.2-0.9); Monocytes % 8.3 %; Neutrophils # 4.81 10^3/uL (1.8-7.7); Neutrophils % 75.4 %; Nucleated Red Blood Cells % 0 %; Platelet Count 180 10^3/cmm (157-399); Red Blood Count 4.13 10^6/uL (3.85-5.65); Red Cell Distribution Width 17.1 % (12.1-15.1); White Blood Count 6.38 10^3/uL (3.29-11.43)
[2023-05-21 05:41] LABS: Alanine Aminotransferase 11 U/L (0-33); Albumin Level 3.3 g/dL (3.5-5.2); Alkaline Phosphatase 52 U/L (35-105); Anion Gap 19.3 (5-19); Aspartate Amino Transferase 20 U/L (0-32); Blood Urea Nitrogen 21 mg/dL (6-20); Calcium 8.7 mg/dL (8.5-10.5); Carbon Dioxide 24 mmol/L (22-29); Chloride 100 mmol/L (98-107); Creatinine Clr Calc Pharmacy 75.3575; Globulin 2.7 g/dL (1.3-4.6); Glomerular Filtration Rate 51.6 mL/min (90-130); Glucose 130 mg/dL (65-115); Magnesium 1.8 mg/dL (1.7-2.3); Osmolality Calculated 295 mOsm/kg (285-295); Potassium 3.3 mmol/L (3.5-5.1); Sodium 140 mmol/L (136-145); Total Bilirubin 0.5 mg/dL (0.15-1.2)
[2023-05-21] MEDS: metOLazone 5 MG Tablet 2.5 MG PO (09:10)
[2023-05-21] MEDS: potassium chloride ER 20 mEq Tablet PO (09:11)
[2023-05-21] MEDS: pantoprazole DR 40 mg Tablet PO (09:11)
[2023-05-21] MEDS: potassium chloride premix 100 ML 50 MEQ IV (09:12)
--- NOTE | 2023-05-21 09:22 | P.PN_ITS ---
Subjective 2 Subjective: Patient is doing well. Diuresing well. Vitals/I&O/Wt Last Vital Signs Temp 96.8 F L 05/21/23 08:00 Pulse 98 05/21/23 09:02 Resp 16 05/21/23 09:02 BP 115/70 05/21/23 08:00 Pulse Ox 95 05/21/23 09:02 O2 Del Method Room Air 05/21/23 09:02 O2 Flow Rate 2 05/21/23 08:00 05/20/23 05/21/23 05/21/23 22:59 06:59 14:59 Intake Total 662.898 / 840.160 178.440 / 1018.600 Output Total 1950 / 1950 750 / 2700 Balance -1287.102 / -1109.840 -571.560 / -1681.400 Weight last 48 hrs Weight 274 lb 6.4 oz Weight 288 lb Weight 282 lb 1 oz Weight 281 lb Physical Exam 2 Narrative: GENERAL: Patient is alert, awake and oriented x3. [] NECK: No jugular vein distension. [] HEENT: No cyanosis. No icterus. No pallor. [] HEART: Regular S1 and S2. No murmur, rub or gallop. [] LUNGS: Diminished air entry bilaterally CENTRAL NERVOUS SYSTEM: Grossly nonfocal. [] EXTREMITIES: Lower extremities with 1+ edema bilaterally. Urinary Catheter Management: [place]: Cath Placed During This Visit: yes, but has since been removed by the nurse Reason for Continuing Indwelling Catheter: Accurate Measurement of Urinary Output in Critically Ill Patients Urinary Catheter Date of Insertion: 05/20/23 Urinary Catheter Time of Insertion: 02:15 Date Urinary Catheter Removed: 05/19/23 Time Urinary Catheter Discontinued: 21:00 Data 05/22/23 04:49 05/22/23 04:49 A&P Assessment and plan (1) Ischemic cardiomyopathy: (2) ICD (implantable cardioverter-defibrillator) in place: (3) CAD (coronary artery disease): Qualifiers: Coronary Disease-Associated Artery/Lesion type: bypass graft [place] vs. transplanted heart: [place] heart Associated angina: without angina Qualified Code(s): I25.810 - Atherosclerosis of coronary artery bypass graft(s) without angina pectoris (4) CHF (congestive heart failure): (5) Atrial fibrillation: Plan Patient is significantly volume overloaded in setting of severely reduced LV systolic function. This is a change from before. She will need ischemic workup once stable. For now to diurese her aggressively with aim to get her euvolemic. Patient has been diuresing well. We will continue with dobutamine drip. Will uptitrate Lasix to 60 mg 3 times daily. We will also add metolazone today. Continue amiodarone drip for today. Can DC tomorrow. Switch to p.o. amnio tomorrow Device interrogation requested.Continue anticoagulation Renal function improving with diuresis. Continue monitoring. Close I&O's. Thank you for involving us with care of this patient. We will continue to follow. Please call with questions. Attestations 2 Medical Necessity Statement*: Care expected to cross 2 midnights. Coding Level of Care Code Acute Code for [facility] Diagnoses Ischemic cardiomyopathy I25.5 ICD (implantable cardioverter-defibrillator) in place Z95.810 Coronary artery disease involving coronary bypass graft of [place] heart without angina pectoris I25.810 Coronary Disease-Associated Artery/Lesion type: bypass graft [place] vs. transplanted heart: [place] heart Associated angina: without angina CHF (congestive heart failure) I50.9 Atrial fibrillation I48.91
[2023-05-21] MEDS: FUROsemide 10 mg/mL SDV 4mL 60 MG IVP ×2 (09:53→16:59)
--- NOTE | 2023-05-21 10:36 | P.PN_ITS ---
Subjective 2 Subjective: seen this morning had 7 and 10 beat of vtach yesterday evening pt asymptomatic K 3.3 today Cr 1.1 Anion gap 19.3 in 1.6L negative balance Vitals/I&O/Wt Last Vital Signs Temp 96.8 F L 05/21/23 08:00 Pulse 104 H 05/21/23 10:00 Resp 37 H 05/21/23 10:00 BP 131/83 05/21/23 10:00 Pulse Ox 94 05/21/23 10:00 O2 Del Method Nasal Cannula 05/21/23 10:00 O2 Flow Rate 2 05/21/23 10:00 05/20/23 05/21/23 05/21/23 22:59 06:59 14:59 Intake Total 662.898 / 840.160 178.440 / 1018.600 100 / 100 Output Total 1950 / 1950 750 / 2700 Balance -1287.102 / -1109.840 -571.560 / -1681.400 100 / 100 Weight last 48 hrs Weight 124.466 kg Weight 130.635 kg Weight 127.941 kg Weight 127.459 kg Physical Exam 2 Narrative: General: Alert oriented x3, patient seen in bed resting comfortably, 2L NC HEENT: Normocephalic, atraumatic, EOMI, breathing room air Cardio: sinus tachycardia normal S1-S2, Respiratory: Mild crackles at bases bilaterally GI: Abdomen soft, nontender, nondistended, bowel sounds + Behavior: Appropriate and cooperative Extremities: 1+ pitting edema bilateral lower extremities Urinary Catheter Management: [place]: Cath Placed During This Visit: yes, but has since been removed by the nurse Reason for Continuing Indwelling Catheter: Accurate Measurement of Urinary Output in Critically Ill Patients Urinary Catheter Date of Insertion: 05/20/23 Urinary Catheter Time of Insertion: 02:15 Date Urinary Catheter Removed: 05/19/23 Time Urinary Catheter Discontinued: 21:00 Data 05/21/23 04:40 05/21/23 04:40 A&P Assessment and plan (1) CHF (congestive heart failure): (2) CAD (coronary artery disease): Qualifiers: Coronary Disease-Associated Artery/Lesion type: bypass graft [place] vs. transplanted heart: [place] heart Associated angina: without angina Qualified Code(s): I25.810 - Atherosclerosis of coronary artery bypass graft(s) without angina pectoris (3) Atrial fibrillation: (4) ICD (implantable cardioverter-defibrillator) in place: (5) Ischemic cardiomyopathy: (6) Diabetes: (7) Chronic kidney disease: (8) High anion gap metabolic acidosis: Plan #A-fib with RVR?resolved #History of CAD, CABG x 5 #Acute decompensated on chronic congestive biventricular heart failure #Worsening heart failure, EF 10 to 15% #Diabetes mellitus type 2 #History of postop atrial fibrillation #History of ventricular tachycardia, ICD in place. #CKD, baseline creatinine unknown ? Creatinine 1.1 today. Continue to monitor. ? Check echo. Left ventricle is dilated. LV systolic function is severely reduced with EF of 10 to 15%. Grossly hypokinetic RV. Left atrial dilation Moderate mitral regurgitation Moderate to severe tricuspid regurgitation. Moderate pulmonary hypertension Pleural effusion is noted IVC appears dilated Compared to prior echocardiogram from 2017, LV systolic function has decreased significantly and is severely reduced. ? Continue on amiodarone gtt till AM and then discontinue ? Replete K 20 IV and 20 meq orally - Switch lasix to 60 q6H - Add metolazone 2.5 mg 30 min prior to lasix - COntinue on dobutamine gtt at 2.5 - Will add levophed drip as well if hypotension. ? Check BMP daily. Lasix put patient on high risk for hypokalemia. Will need to monitor ? Check 2.19 ? BNP 7300. On admission. ? Check urinalysis, positive for RBCs. Traumatic [place] ? DuoNeb every 6 6 hours as needed ? Patient does have elevated lactic acidosis which is most likely secondary to her worsening heart failure which carries a poor prognosis overall. ? Chest x-ray does show evidence of pulmonary vascular congestion. No true infiltrate seen ? Sliding scale insulin low-dose intensity ? Cardiac diabetic diet ? Will continue on therapeutic Lovenox at this time. - ICD interrogation confirms Afib. ? Patient will need an ischemic workup once stable from a fluid standpoint. ? Consult cardiology. Recommendations appreciated. ? Continue ICU level care. ? She carries a high risk for decompensation and is at high risk for ventricular arrhythmia including but not limited to . Full code DVT prophylaxis: On therapeutic Lovenox Attestations 2 Medical Necessity Statement*: Patient is critically ill with worsening heart failure and elevated lactic acid requiring ICU stay for dobutamine drip along with Lasix for diuresis. Diagnoses CHF (congestive heart failure) I50.9 Coronary artery disease involving coronary bypass graft of [place] heart without angina pectoris I25.810 Coronary Disease-Associated Artery/Lesion type: bypass graft [place] vs. transplanted heart: [place] heart Associated angina: without angina Atrial fibrillation I48.91 ICD (implantable cardioverter-defibrillator) in place Z95.810 Ischemic cardiomyopathy I25.5 Diabetes E11.9 Chronic kidney disease N18.9 High anion gap metabolic acidosis E87.29
[2023-05-21] MEDS: cefTRIAXone 1,000 MG in sodium chloride 0.9% (plus) 50 ML 100 MG IV (15:20)
--- NOTE | 2023-05-21 18:58 | PC.NURSE ---
Shift summary: Pt sat up in chair for 3.5 hours this am. She has been on room air since this am. She was able to transfer from chair to bed without shortness of breath today. She remains on sinus rhythm with bundle branch block. Occasionally PVCs noted. She has only ate small portions of her meals She has been sparing on her adequate fluid intake. Amio gtt and Dobutamine gtt infusing without rate changes. 2450 of uriine out put noted. No Bm noted. Family has been at bedside , attentive.
[2023-05-22] VITALS (39 sets, daily range): BP systolic 93–146; BP diastolic 56–95; PULSE 94–111; RESP 15–35; TEMP 36.4–36.9; O2SAT 89–97
[2023-05-22] MEDS: enoxaparin 150 mg/mL Syringe 130 MG SUBCUT ×2 (01:36→13:33)
[2023-05-22] MEDS: FUROsemide 10 mg/mL SDV 4mL 60 MG IVP ×4 (01:36→23:30)
[2023-05-22 04:58] LABS: Basophils % 0.3 %; Eosinophils # 0.1 10^3/uL (0.0-0.8); Eosinophils % 1.7 %; Lymphocytes % 14.5 %; Mean Corpuscular HGB Conc 32.9 g/dL (30-55); Mean Corpuscular Hemoglobin 29.4 pg (27-33); Mean Corpuscular Volume 89.4 fl (85-98); Mean Platelet Volume 9.2 fL (7.4-10.4); Monocytes # 0.6 10^3/uL (0.2-0.9); Monocytes % 8.9 %; Neutrophils # 4.93 10^3/uL (1.8-7.7); Neutrophils % 74.3 %; Nucleated Red Blood Cells % 0 %; Platelet Count 188 10^3/cmm (157-399); Red Blood Count 4.25 10^6/uL (3.85-5.65); Red Cell Distribution Width 17.1 % (12.1-15.1); White Blood Count 6.63 10^3/uL (3.29-11.43)
[2023-05-22 05:26] LABS: Alanine Aminotransferase 9 U/L (0-33); Albumin Level 3.4 g/dL (3.5-5.2); Alkaline Phosphatase 49 U/L (35-105); Anion Gap 16.8 (5-19); Aspartate Amino Transferase 13 U/L (0-32); Blood Urea Nitrogen 15 mg/dL (6-20); Calcium 8.6 mg/dL (8.5-10.5); Carbon Dioxide 28 mmol/L (22-29); Chloride 95 mmol/L (98-107); Creatinine Clr Calc Pharmacy 82.8932; Globulin 2.9 g/dL (1.3-4.6); Glomerular Filtration Rate 57.6 mL/min (90-130); Glucose 131 mg/dL (65-115); Magnesium 1.7 mg/dL (1.7-2.3); Osmolality Calculated 287 mOsm/kg (285-295); Sodium 137 mmol/L (136-145); Total Bilirubin 0.6 mg/dL (0.15-1.2); Total Protein 6.3 g/dL (6.6-8.7)
[2023-05-22 05:40] LABS: Potassium 2.8 mmol/L (3.5-5.1)
[2023-05-22] MEDS: lidocaine 1% 5 ML in potassium chloride premix 100 ML 52.5 ML IV (06:05)
[2023-05-22] MEDS: potassium chloride ER 20 mEq Tablet 40 MEQ PO ×2 (06:05→19:22)
[2023-05-22] MEDS: DOBUTamine drip 500 MG/250 ML PREMIX 9.80000000000000071 MG IV (06:43)
--- NOTE | 2023-05-22 07:43 | P.PN_ITS ---
Subjective 2 Subjective: Patient is feeling well. No chest pain. Vitals/I&O/Wt Last Vital Signs Temp 98.2 F 05/22/23 04:00 Pulse 104 H 05/22/23 06:30 Resp 32 H 05/22/23 06:30 BP 122/87 05/22/23 06:30 Pulse Ox 89 L 05/22/23 06:30 O2 Del Method Room Air 05/21/23 18:30 O2 Flow Rate 2 05/21/23 10:00 05/21/23 05/22/23 05/22/23 22:59 06:59 14:59 Intake Total 550 / 1445.317 743.65 / 2188.967 Output Total 1900 / 2450 3150 / 5600 Balance -1350 / -1004.683 -2406.35 / -3411.033 Weight last 48 hrs Weight 274 lb 6.4 oz Physical Exam 2 Narrative: GENERAL: Patient is alert, awake and oriented x3. [] NECK: No jugular vein distension. [] HEENT: No cyanosis. No icterus. No pallor. [] HEART: Regular S1 and S2. No murmur, rub or gallop. [] LUNGS: Diminished air entry bilaterally CENTRAL NERVOUS SYSTEM: Grossly nonfocal. [] EXTREMITIES: Lower extremities with 1+ edema bilaterally. Urinary Catheter Management: [place]: Cath Placed During This Visit: yes, but has since been removed by the nurse Reason for Continuing Indwelling Catheter: Accurate Measurement of Urinary Output in Critically Ill Patients Urinary Catheter Date of Insertion: 05/20/23 Urinary Catheter Time of Insertion: 02:15 Date Urinary Catheter Removed: 05/19/23 Time Urinary Catheter Discontinued: 21:00 Data 05/22/23 04:49 05/23/23 04:40 Micro: Microbiology 05/19/23 23:41 Urine Culture - Preliminary Urine,Clean Catch Gram Negative Rods A&P Assessment and plan (1) Ischemic cardiomyopathy: (2) ICD (implantable cardioverter-defibrillator) in place: (3) CAD (coronary artery disease): Qualifiers: Coronary Disease-Associated Artery/Lesion type: bypass graft [place] vs. transplanted heart: [place] heart Associated angina: without angina Qualified Code(s): I25.810 - Atherosclerosis of coronary artery bypass graft(s) without angina pectoris (4) CHF (congestive heart failure): (5) Atrial fibrillation: Plan Patient is significantly volume overloaded in setting of severely reduced LV systolic function. This is a change from before. Likely heart cath in 1-2 days. For now to diurese her aggressively with aim to get her euvolemic. Patient has been diuresing well. We will continue with dobutamine drip. Will uptitrate Lasix to 60 mg 3 times daily. PO amiodarone. Device check did not show afib. But has a history of it. Till she is on dobutamine we will continue amiodarone to decrease NSVT/VT. Device interrogation showing NSVT episodes. No afib. .Continue anticoagulation for history of afib. Renal function improving with diuresis. Continue monitoring. Close I&O's. Replace potassium as needed Thank you for involving us with care of this patient. We will continue to follow. Please call with questions. Attestations 2 Medical Necessity Statement*: Care expected to cross 2 midnights. Coding Level of Care Code Acute Code for [facility] Diagnoses Ischemic cardiomyopathy I25.5 ICD (implantable cardioverter-defibrillator) in place Z95.810 Coronary artery disease involving coronary bypass graft of [place] heart without angina pectoris I25.810 Coronary Disease-Associated Artery/Lesion type: bypass graft [place] vs. transplanted heart: [place] heart Associated angina: without angina CHF (congestive heart failure) I50.9 Atrial fibrillation I48.91
[2023-05-22] MEDS: pantoprazole DR 40 mg Tablet PO (08:37)
--- NOTE | 2023-05-22 09:45 | PC.NURSE ---
Dr Lamb, rounding with pt, notified of ectopy that occurred this am around 0700. Strip in chart.
[2023-05-22] MEDS: amiodarone 200 mg Tablet 400 MG PO ×2 (10:26→18:37)
--- NOTE | 2023-05-22 10:54 | PM.PN ---
Subjective Subjective: seen today K 2.8 this am net negative balance 5 L she feels a lit better Vitals/I&O/Wt Last Vital Signs Temp 98.2 F 05/22/23 04:00 Pulse 100 05/22/23 08:34 Resp 18 05/22/23 08:34 BP 122/87 05/22/23 06:30 Pulse Ox 93 05/22/23 08:34 O2 Del Method Room Air 05/22/23 08:34 O2 Flow Rate 2 05/21/23 10:00 05/21/23 05/22/23 05/22/23 22:59 06:59 14:59 Intake Total 550 / 1445.317 743.65 / 2188.967 Output Total 1900 / 2450 3150 / 5600 Balance -1350 / -1004.683 -2406.35 / -3411.033 Weight last 48 hrs Weight 124.466 kg Physical Exam Narrative: General: Alert oriented x3, patient seen in bed resting comfortably, now on room air HEENT: Normocephalic, atraumatic, EOMI, breathing room air Cardio: sinus tachycardia normal S1-S2, Respiratory: clear to auscultation b/l, no wheezes, GI: Abdomen soft, nontender, nondistended, bowel sounds + Behavior: Appropriate and cooperative Extremities: 1+ pitting edema bilateral lower extremities Urinary Catheter Management: [place]: Cath Placed During This Visit: yes, but has since been removed by the nurse Reason for Continuing Indwelling Catheter: Accurate Measurement of Urinary Output in Critically Ill Patients Urinary Catheter Date of Insertion: 05/20/23 Urinary Catheter Time of Insertion: 02:15 Date Urinary Catheter Removed: 05/19/23 Time Urinary Catheter Discontinued: 21:00 Data 05/22/23 04:49 05/22/23 04:49 Micro: Microbiology 05/19/23 23:41 Urine Culture - Final Urine,Clean Catch Escherichia coli A&P Assessment and plan (1) CHF (congestive heart failure): (2) CAD (coronary artery disease): Qualifiers: Coronary Disease-Associated Artery/Lesion type: bypass graft [place] vs. transplanted heart: [place] heart Associated angina: without angina Qualified Code(s): I25.810 - Atherosclerosis of coronary artery bypass graft(s) without angina pectoris (3) Atrial fibrillation: (4) ICD (implantable cardioverter-defibrillator) in place: (5) Ischemic cardiomyopathy: (6) Diabetes: (7) Chronic kidney disease: (8) High anion gap metabolic acidosis: Plan #A-fib with RVR?resolved #History of CAD, CABG x 5 #Acute decompensated on chronic congestive biventricular heart failure #Worsening heart failure, EF 10 to 15% #Diabetes mellitus type 2 #History of postop atrial fibrillation #History of ventricular tachycardia, ICD in place. #CKD, baseline creatinine unknown ? Creatinine 1.1 today. Continue to monitor. ? Check echo. Left ventricle is dilated. LV systolic function is severely reduced with EF of 10 to 15%. Grossly hypokinetic RV. Left atrial dilation Moderate mitral regurgitation Moderate to severe tricuspid regurgitation. Moderate pulmonary hypertension Pleural effusion is noted IVC appears dilated Compared to prior echocardiogram from 2017, LV systolic function has decreased significantly and is severely reduced. ? Continue on amiodarone gtt till AM and then discontinue ? Replete K 20 IV and 20 meq orally - Switch lasix to 60 q6H - Add metolazone 2.5 mg 30 min prior to lasix. One more dose today. - Continue on dobutamine gtt at 2.5 - Will add levophed drip as well if hypotension. ? Check BMP daily. Lasix put patient on high risk for hypokalemia. Will need to monitor ? BNP 7300. On admission. ? Check urinalysis, positive for RBCs. Traumatic [place] ? DuoNeb every 6 hours as needed ? Patient does have elevated lactic acidosis which is most likely secondary to her worsening heart failure which carries a poor prognosis overall. ? Chest x-ray does show evidence of pulmonary vascular congestion. No true infiltrate seen ? Sliding scale insulin low-dose intensity ? Cardiac diabetic diet ? Will continue on therapeutic Lovenox at this time. - ICD interrogation confirms Afib. ? Patient will need an ischemic workup once stable from a fluid standpoint. ? Consult cardiology. Recommendations appreciated. ? Continue ICU level care. Full code DVT prophylaxis: On therapeutic Lovenox Attestations Medical Necessity Statement*: Patient is critically ill with worsening heart failure and elevated lactic acid requiring ICU stay for dobutamine drip along with Lasix for diuresis. Diagnoses CHF (congestive heart failure) I50.9 Coronary artery disease involving coronary bypass graft of [place] heart without angina pectoris I25.810 Coronary Disease-Associated Artery/Lesion type: bypass graft [place] vs. transplanted heart: [place] heart Associated angina: without angina Atrial fibrillation I48.91 ICD (implantable cardioverter-defibrillator) in place Z95.810 Ischemic cardiomyopathy I25.5 Diabetes E11.9 Chronic kidney disease N18.9 High anion gap metabolic acidosis E87.29
[2023-05-22] MEDS: metOLazone 5 MG Tablet 2.5 MG PO (11:24)
[2023-05-22] MEDS: cefTRIAXone 1,000 MG in sodium chloride 0.9% (plus) 50 ML 100 MG IV (13:33)
[2023-05-22] MEDS: potassium chloride ER 20 mEq Tablet PO (13:35)
[2023-05-22 16:48] LABS: Blood Urea Nitrogen 14 mg/dL (6-20); Calcium 8.7 mg/dL (8.5-10.5); Carbon Dioxide 30 mmol/L (22-29); Chloride 93 mmol/L (98-107); Creatinine Clr Calc Pharmacy 82.8932; Glomerular Filtration Rate 57.6 mL/min (90-130); Glucose 143 mg/dL (65-115); Osmolality Calculated 287 mOsm/kg (285-295); Sodium 137 mmol/L (136-145)
[2023-05-22 16:55] LABS: Anion Gap 17.5 (5-19); Potassium 3.5 mmol/L (3.5-5.1)
--- NOTE | 2023-05-22 18:18 | PC.NURSE ---
Shift summary: Pt has sat up in chair entire shift. She has had multiple visitors today. She occasionally stands to stretch and wiggle. She remains in sinus tach rhtyhm with few PVCs today. VSS. Afebrile. She moderates her liquid intake well. She eats an adequate amount of her meals. Family brought in some broth for her this evening. Amio gtt discontinued, switched to PO . No change to Lasix today. [employer] admin again today. She has had 1775 of urine output this shift. No Bm this shift. Pt has been belching frequently this shift but denied need for Tums for indigestion.
--- NOTE | 2023-05-22 18:48 | PC.NURSE ---
Weight includes SCD machine on end of bed.
[2023-05-22] MEDS: calcium carbonate 500 mg Chew Tablet PO (21:00)
[2023-05-23] VITALS (43 sets, daily range): BP systolic 97–144; BP diastolic 43–103; PULSE 93–109; RESP 14–54; TEMP 36.6–36.9; O2SAT 88–98
[2023-05-23] MEDS: enoxaparin 150 mg/mL Syringe 130 MG SUBCUT (02:48)
[2023-05-23 05:09] LABS: Anion Gap 15.3 (5-19); Blood Urea Nitrogen 17 mg/dL (6-20); Calcium 8.8 mg/dL (8.5-10.5); Carbon Dioxide 32 mmol/L (22-29); Chloride 94 mmol/L (98-107); Glomerular Filtration Rate 51.6 mL/min (90-130); Glucose 148 mg/dL (65-115); Magnesium 1.7 mg/dL (1.7-2.3); Osmolality Calculated 290 mOsm/kg (285-295); Potassium 3.3 mmol/L (3.5-5.1); Sodium 138 mmol/L (136-145)
[2023-05-23] MEDS: DOBUTamine drip 500 MG/250 ML PREMIX 8.71000000000000085 MG IV (08:05)
--- NOTE | 2023-05-23 08:09 | XACV_ITS ---
Exam Room: 2 Ht: 163 cm Wt: 116 kg BSA: 2.35 m2 Gender: Female : 1965 Any Known Allergies: Penicillins Exam Priority: Routine Procedure(s): Procedure Description: Diagnostic procedure Procedure Description: Left Heart Catheterization Procedure Description: Venous Graft Catheterization Procedure Description: PANIAGUA Graft Catheterization Procedure Description: Coronary Angiography Diagnostic Cath Status: Elective Diagnostic Findings * Left Main has no significant disease. * Mid Left Anterior Descending: chronic total occlusion, FREDA: 0 flow. * Proximal RCA has severe 95% stenosis. Mid Right Coronary Artery to Distal Right Coronary Artery: chronic total occlusion, FREDA: 0 flow. * Bypass grafts: PANIAGUA to LAD and diagonal is Patent. [place] LAD post anastamosis has diffuse disease. SVG to OMs is patent. SVG to RCA is occluded.. * Proximal Circumflex to Mid Circumflex: chronic total occlusion, FREDA: 0 flow. * Coronary angiography shows right dominance. Conclusions 1. Severe multivessel [place] CAD. PANIAGUA to LAD and diagonal is patent. SVG to OMs is patent. SVG to RCA is occluded.. 2. Patient has prior CABG. Recommendations * Guideline directed heart failure therapy. * Aggressive risk factor modification. Interventional RX Recommendation: medical therapy and/or counseling Diagnostic RX Recommendation: medical therapy and/or counseling Pressures Phase:Rest AO : 106 / 74 ( 86 ) @ 10:00:00 AM 93 / 83 ( 88 ) @ 10:04:00 AM 97 / 86 ( 90 ) @ 10:06:00 AM 116 / 80 ( 93 ) @ 10:11:00 AM 116 / 80 ( 92 ) @ 10:11:00 AM LV : 121 / 0 / 32 @ 10:11:00 AM 121 / 0 / 31 @ 10:11:00 AM Valves Phase:DefaultPhase AV : 5.0 @ 10:21:01 AM 5.0 @ 10:21:01 AM AV Mean Gradient: 14.0 @ 10:21:01 AM 14.0 @ 10:21:01 AM Clinical Evaluation EBL: 5mL-10mL Procedural Details Procedure Consent Obtained. Current Diagnosis : Chest Pain. Pre-Procedure Time Out. Identified patient by full name and date of as verbalized by the patient/guarantor. Does the consent match the physician's order: Yes. Accurate & Complete Informed Consent: Yes. Inpatient/Outpatient History & Physical on Chart: Yes. If H&P is completed, is and addenduem needed: No; If yes, is the addendum complete: N/A. Visualize and Verify Site with Patient/Guarantor: N/A. Relevant Radiology Images available: Yes. Pre-op teaching completed and patient verbalized understanding. The risks, benefits, and alternatives of sedation and/or procedure were discussed by physician. The patient agrees to continue. Procedure started. [facility] Clinical Fraility Score: 4: Vulnerable. Test Equipment Mechanic Indications: LV Dysfunction. Chest Pain Symptom Assessment: Atypical Angina. Correct patient, site and procedure confirmed by cath team. PERRLA. 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 Lungs clear x 5 lobes. IV Site on Arrival: 18 gauge in the left anticubital. Oxygen started at 2liters/min via nasal canula. Physician arrived. bilateral groins was prepped with chloroprep then draped in the usual sterile fashion. Baseline sample Acquired. HR: 123 BPM. Physician scrubbed in. Immediate Pre-Procedure Time Out. Correct Patient: Yes; Correct Procedure: Yes; Correct Site: Yes; Correct Patient Position: Yes; Correct Supplies: Yes; Dried Flammable Prep: Yes; Blood Products Available: N/A;. Lidocaine 1% infiltrated to the right groin. Arterial access obtained with micropuncture set. A 5 [place] JL4 catheter in over wire. Multiple views taken of left coronary artery. Catheter removed over the standard wire. A 5 [place] JR4 catheter in over wire. Multiple views taken of right coronary artery. SVG's to OM visualized and patent. SVG to RCA occluded. PANIAGUA to LAD visualized. EDP Sample taken: LV 121/-1,32; HR: 113 BPM; SpO2: 98%. Pullback taken: LV 121/-1,31; AO 116/80(93); Mean: 14mmHg, Peak to Peak: 5mmHg, SEP: 10sec/min; HR: 112 BPM; SpO2: 97%. Catheter removed over the standard wire. A Right femoral angiogram was performed to determine safe placement of closure device. Lidocaine 1% infiltrated to the right groin. A Angio-Seal VIP ([facility]) was successful obtaining hemostatsis at the Right Femoral artery insertion site. Post Procedure: Pulses reassessed and unchanged. PERRLA. 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 No VTE prophylaxis required. Medication's Wasted: Other = Fentanyl 75mcg Versed 1 mg. Medication's Wasted: Heparin = 1000 units. Medication's Wasted: Other = Benadryl 25 mg. Complications: None. Estimated blood loss: 5mL-10mL. Responsiveness - Normal response to verbal stimuli; alert and oriented, PERRLA. Airway - Unaffected, no intervention required; spontaneous ventilation. Circulation: W/N/L, pulses unchanged. Nausea/Vomiting: No. Procedure completed. Vital chart was stopped. Patient transferred by bed to ICU. Access Site Site: Right Femoral artery Sheath Size: 6 Fr Hemostasis Method: Angio-Seal VIP ([facility]) Hemostasis Success: Successful Procedure Medications Start: 9:54 AM Stop: 9:54 AM Medication: Versed 1 mg and Fentanyl 25 mcg Amount: 1 Route: I.V. Start: 10:02 AM Stop: 10:02 AM Medication: Benadryl Amount: 25 mg Route: I.V. I, the attending physician, have reviewed and verified all procedure medications. Yes, all medications given per verbal order History/Risk Factors Hypertension: No Dyslipidemia: No Peripheral Arterial Disease (PAD): No Myocardial Infarction ([place]): No Obesity: Yes Renal Disease: No Tobacco Use: Former Prior Interventions PCI: No CABG: Yes Valve Surgery: No Report Signatures Finalized by Khanh Lamb MD on 05/28/2023 09:23 AM
[2023-05-23] MEDS: amiodarone 200 mg Tablet 400 MG PO ×2 (08:15→17:50)
[2023-05-23] MEDS: potassium chloride ER 20 mEq Tablet PO (08:15)
[2023-05-23] MEDS: pantoprazole DR 40 mg Tablet PO (08:15)
--- NOTE | 2023-05-23 08:17 | P.PN_ITS ---
Subjective 2 Subjective: Patient is doing well. She had coronary angiogram today that showed patent PANIAGUA to LAD and diagonal, SVG jump graft to OM's. SVG to RCA was occluded. [place] RCA is also occluded. She is diuresing well. Vitals/I&O/Wt Last Vital Signs Temp 98.4 F 05/23/23 04:00 Pulse 106 H 05/23/23 06:00 Resp 30 H 05/23/23 06:00 BP 111/82 05/23/23 06:00 Pulse Ox 90 05/23/23 06:00 O2 Del Method Room Air 05/23/23 06:00 O2 Flow Rate 2 05/21/23 10:00 05/22/23 05/23/23 05/23/23 22:59 06:59 14:59 Intake Total 620 / 1336.148 200 / 1536.148 Output Total 975 / 1775 2400 / 4175 Balance -355 / -438.852 -2200 / -2638.852 Weight last 48 hrs Weight 256 lb Weight 263 lb 4.8 oz Physical Exam 2 Narrative: GENERAL: Patient is alert, awake and oriented x3. [] NECK: No jugular vein distension. [] HEENT: No cyanosis. No icterus. No pallor. [] HEART: Regular S1 and S2. No murmur, rub or gallop. [] LUNGS: Diminished air entry bilaterally CENTRAL NERVOUS SYSTEM: Grossly nonfocal. [] EXTREMITIES: Lower extremities with 1+ edema bilaterally. Urinary Catheter Management: [place]: Cath Placed During This Visit: yes, but has since been removed by the nurse Reason for Continuing Indwelling Catheter: Accurate Measurement of Urinary Output in Critically Ill Patients Urinary Catheter Date of Insertion: 05/20/23 Urinary Catheter Time of Insertion: 02:15 Date Urinary Catheter Removed: 05/19/23 Time Urinary Catheter Discontinued: 21:00 Data 05/24/23 03:43 05/24/23 03:43 Micro: Microbiology 05/19/23 23:41 Urine Culture - Final Urine,Clean Catch Escherichia coli A&P Assessment and plan (1) Ischemic cardiomyopathy: (2) ICD (implantable cardioverter-defibrillator) in place: (3) CAD (coronary artery disease): Qualifiers: Associated angina: without angina Coronary Disease-Associated Artery/Lesion type: bypass graft [place] vs. transplanted heart: [place] heart Qualified Code(s): I25.810 - Atherosclerosis of coronary artery bypass graft(s) without angina pectoris (4) CHF (congestive heart failure): (5) Atrial fibrillation: Plan Patient had coronary angiogram performed today. Above-mentioned coronary anatomy. Medical therapy for CAD. Patient has been diuresing well. We will continue with dobutamine drip. Will down titrate Lasix today to 40 mg 3 times daily. PO amiodarone. Device check did not show afib. But has a history of it. Till she is on dobutamine we will continue amiodarone to decrease NSVT/VT. Device interrogation showing NSVT episodes. No afib. .Continue anticoagulation for history of afib. Renal function improving with diuresis. Continue monitoring. Close I&O's. Replace potassium as needed Thank you for involving us with care of this patient. We will continue to follow. Please call with questions. Attestations 2 Medical Necessity Statement*: Care expected to cross 2 midnights. Coding Level of Care Code Acute Code for [facility] Diagnoses Ischemic cardiomyopathy I25.5 ICD (implantable cardioverter-defibrillator) in place Z95.810 Coronary artery disease involving coronary bypass graft of [place] heart without angina pectoris I25.810 Associated angina: without angina Coronary Disease-Associated Artery/Lesion type: bypass graft [place] vs. transplanted heart: [place] heart CHF (congestive heart failure) I50.9 Atrial fibrillation I48.91
[2023-05-23] MEDS: FUROsemide 10 mg/mL SDV 4mL 40 MG IVP ×3 (08:30→23:07)
[2023-05-23] MEDS: lidocaine 1% 5 ML in potassium chloride premix 100 ML 52.5 ML IV (09:23)
--- NOTE | 2023-05-23 09:30 | PC.NURSE ---
Pt bathed with bath wipes. Linens changed. Pt back to bed with very minimal assistance with her legs to bed. Bilat groin shaved for cardiac cath prep.
--- NOTE | 2023-05-23 09:41 | W.PM.OPSUD ---
Surgery/Procedure H&P Update DATE OF PROCEDURE: May 23, 2023 DATE H&P PERFORMED: 05/20/23 H&P UPDATE INFORMATION: I have reviewed H&P completed within last 30 days, I have examined patient prior to procedure and Changes to prior documentation as noted here CHANGES TO PREVIOUS DOCUMENTATION: Patient has significant LV dysfunction compared to before. EF dropped from 45% before now to 10-15%. Plan for coronary angiogram to assess ischemic because of her EF dropped. Patient has been diuresed and renal function is stable. She is able to lay down today. PRIMARY INDICATION FOR PROCEDURE: LV dysfunction/ drop in LV EF PLANNED PROCEDURE: Left heart cath with possible percutaneous coronary intervention PATIENT REASSESSED PRIOR TO SEDATION, WITH NO CHANGE NOTED: Yes PHYSICAL EXAM: alert, oriented x 3, clear to auscultation bilaterally and regular rate & rhythm AIRWAY EVAL/ANESTHESIA PLAN: normal airway, ASA III, Local Anesthesia, Risks, benefits & alternatives of sedation and/or procedure discussed and Patient agrees to continue as planned ADDITIONAL INFORMATION: Moderate sedation
--- NOTE | 2023-05-23 10:40 | PC.NURSE ---
Pt back to ICU from ath lab. NO interventions needed. Angioseal to right groin soft, with no hematomas.
--- NOTE | 2023-05-23 11:44 | PC.NURSE ---
Dobutamine gtt has been a continuos infusion.. Bag scanned late.
[2023-05-23] MEDS: cefTRIAXone 1,000 MG in sodium chloride 0.9% (plus) 50 ML 100 MG IV (13:02)
--- NOTE | 2023-05-23 13:27 | PC.NURSE ---
Pt rested with eyes closed. Resp deep and unlabored. Right groin site no issues.
--- NOTE | 2023-05-23 13:39 | P.PN_ITS ---
Subjective 2 Subjective: seen this am pt s/p angiogram 7.9L net negative says she is doing well Vitals/I&O/Wt Last Vital Signs Temp 98.2 F 05/23/23 08:00 Pulse 99 05/23/23 13:15 Resp 16 05/23/23 13:15 BP 109/76 05/23/23 13:15 Pulse Ox 95 05/23/23 13:15 O2 Del Method Nasal Cannula 05/23/23 13:15 O2 Flow Rate 2 05/23/23 13:15 05/22/23 05/23/23 05/23/23 22:59 06:59 14:59 Intake Total 620 / 1336.148 200 / 1536.148 315 / 315 Output Total 975 / 1775 2400 / 4175 350 / 350 Balance -355 / -438.852 -2200 / -2638.852 -35 / -35 Weight last 48 hrs Weight 116.12 kg Weight 119.431 kg Physical Exam 2 Narrative: General: Alert oriented x3, patient seen in bed HEENT: Normocephalic, atraumatic, EOMI, breathing room air Cardio: RRR normal S1-S2, Respiratory: clear to auscultation b/l, no wheezes, GI: Abdomen soft, nontender, nondistended, bowel sounds + Behavior: Appropriate and cooperative Extremities: Trace+ pitting edema bilateral lower extremities Urinary Catheter Management: [place]: Cath Placed During This Visit: yes, but has since been removed by the nurse Reason for Continuing Indwelling Catheter: Accurate Measurement of Urinary Output in Critically Ill Patients Urinary Catheter Date of Insertion: 05/20/23 Urinary Catheter Time of Insertion: 02:15 Date Urinary Catheter Removed: 05/19/23 Time Urinary Catheter Discontinued: 21:00 Data 05/22/23 04:49 05/23/23 04:40 Micro: Microbiology 05/19/23 23:41 Urine Culture - Final Urine,Clean Catch Escherichia coli A&P Assessment and plan (1) CHF (congestive heart failure): (2) CAD (coronary artery disease): Qualifiers: Coronary Disease-Associated Artery/Lesion type: bypass graft [place] vs. transplanted heart: [place] heart Associated angina: without angina Qualified Code(s): I25.810 - Atherosclerosis of coronary artery bypass graft(s) without angina pectoris (3) Atrial fibrillation: (4) ICD (implantable cardioverter-defibrillator) in place: (5) Ischemic cardiomyopathy: (6) Diabetes: (7) Chronic kidney disease: (8) High anion gap metabolic acidosis: Plan #A-fib with RVR?resolved #History of CAD, CABG x 5 #Acute decompensated on chronic congestive biventricular heart failure #Worsening heart failure, EF 10 to 15% #Diabetes mellitus type 2 #History of postop atrial fibrillation #History of ventricular tachycardia, ICD in place. #CKD, baseline creatinine unknown ? Creatinine 1.1 today. Continue to monitor. ? Check echo. Left ventricle is dilated. LV systolic function is severely reduced with EF of 10 to 15%. Grossly hypokinetic RV. Left atrial dilation Moderate mitral regurgitation Moderate to severe tricuspid regurgitation. Moderate pulmonary hypertension Pleural effusion is noted IVC appears dilated Compared to prior echocardiogram from 2017, LV systolic function has decreased significantly and is severely reduced. - stop metolazone continue dobutamine 2.5. Patient requires monitoring in icu due to increased risk of cardiac arrhythmia given high risk medication use. - place on potassium 40 daily - amiodarone 400 BID x7 days, then 400 daily - start metoprolol 25 BID ? Check BMP daily. Lasix put patient on high risk for hypokalemia. Will need to monitor ? BNP 7300. On admission. Urine culture positive for pansensitive e.coli, complete ceftriaxone x7 days ? DuoNeb every 6 hours as needed ? Patient does have elevated lactic acidosis which is most likely secondary to her worsening heart failure which carries a poor prognosis overall. ?repeat chest xray in AM ? Sliding scale insulin low-dose intensity ? Cardiac diabetic diet ? Will continue on therapeutic Lovenox at this time. - ICD interrogation confirms Afib. ? Consult cardiology. Recommendations appreciated. ? Continue ICU level care. Full code DVT prophylaxis: On therapeutic Lovenox Attestations 2 Medical Necessity Statement*: Patient is critically ill with worsening heart failure and elevated lactic acid requiring ICU stay for dobutamine drip along with Lasix for diuresis. Diagnoses CHF (congestive heart failure) I50.9 Coronary artery disease involving coronary bypass graft of [place] heart without angina pectoris I25.810 Coronary Disease-Associated Artery/Lesion type: bypass graft [place] vs. transplanted heart: [place] heart Associated angina: without angina Atrial fibrillation I48.91 ICD (implantable cardioverter-defibrillator) in place Z95.810 Ischemic cardiomyopathy I25.5 Diabetes E11.9 Chronic kidney disease N18.9 High anion gap metabolic acidosis E87.29
--- NOTE | 2023-05-23 19:01 | PC.NURSE ---
Shift summary: Pt went to [facility] today. Angioseal to right groin soft with no hematomas. She tolerated the 4 hours bedrest very well. While supine her O2 sats were hovering around 88% and her face was slightly purple. 2lpm/NC applied and these resolved. After bedrest was done, pt up to chair in room, now on room air. Due to cath she had no breakfast or lunch. She picked at her dinner, wound up mostly just eating jello. Lung sounds clear. Sinus rhythm noted throughout shift on monitor. PVcs not noted today. Only trace edema noted bilat lower extremities. Dobutamine gtt remains infusing at set rate of 2.5 mcg/kg/min. She received 20mEq KCL IV and 20mEq KCL po today. She has difficulty swallowing the huge potassium tables, crushing and putting in applesauce worked very well. Belching noted this afternoon. 1700ml of clear pae yellow urine noted. No BMs today.
[2023-05-23] MEDS: metoprolol tartrate 25 mg Tablet PO (19:59)
[2023-05-24] VITALS (25 sets, daily range): BP systolic 94–138; BP diastolic 74–115; PULSE 84–100; RESP 15–33; TEMP 36.4–37.1; O2SAT 88–97
[2023-05-24 03:59] LABS: Basophils % 0.2 %; Eosinophils # 0.1 10^3/uL (0.0-0.8); Eosinophils % 0.8 %; Hematocrit 36.8 % (36-47); Lymphocytes # 0.9 10^3/uL (0.8-4.8); Lymphocytes % 14.1 %; Mean Corpuscular HGB Conc 32.3 g/dL (30-55); Mean Corpuscular Hemoglobin 28.7 pg (27-33); Mean Corpuscular Volume 88.9 fl (85-98); Monocytes # 0.5 10^3/uL (0.2-0.9); Monocytes % 8.7 %; Neutrophils # 4.72 10^3/uL (1.8-7.7); Neutrophils % 75.9 %; Nucleated Red Blood Cells % 0 %; Platelet Count 181 10^3/cmm (157-399); Red Blood Count 4.14 10^6/uL (3.85-5.65); Red Cell Distribution Width 17.1 % (12.1-15.1); White Blood Count 6.22 10^3/uL (3.29-11.43)
[2023-05-24 04:19] LABS: Blood Urea Nitrogen 17 mg/dL (6-20); Calcium 8.5 mg/dL (8.5-10.5); Carbon Dioxide 34 mmol/L (22-29); Chloride 93 mmol/L (98-107); Glomerular Filtration Rate 51.6 mL/min (90-130); Glucose 133 mg/dL (65-115); Osmolality Calculated 291 mOsm/kg (285-295); Sodium 139 mmol/L (136-145)
[2023-05-24] MEDS: amiodarone 200 mg Tablet 400 MG PO ×2 (08:04→17:54)
[2023-05-24] MEDS: FUROsemide 10 mg/mL SDV 4mL 40 MG IVP ×3 (08:04→23:21)
[2023-05-24] MEDS: metoprolol tartrate 25 mg Tablet PO ×2 (08:04→20:49)
[2023-05-24] MEDS: pantoprazole DR 40 mg Tablet PO (08:05)
[2023-05-24] MEDS: potassium chloride ER 20 mEq Tablet 40 MEQ PO ×2 (08:05→16:33)
--- NOTE | 2023-05-24 08:43 | PM.PN ---
Subjective Subjective: Patient feeling well. Diuresing well. Vitals/I&O/Wt Last Vital Signs Temp 97.6 F 05/24/23 04:00 Pulse 91 05/24/23 06:00 Resp 26 H 05/24/23 06:00 BP 118/77 05/24/23 06:00 Pulse Ox 96 05/24/23 06:00 O2 Del Method Nasal Cannula 05/24/23 06:00 O2 Flow Rate 3 05/24/23 06:00 05/23/23 05/24/23 05/24/23 22:59 06:59 14:59 Intake Total 600 / 1070 Output Total 1350 / 1700 1200 / 2900 Balance -750 / -630 -1200 / -1830 Weight last 48 hrs Weight 253 lb Weight 256 lb Weight 263 lb 4.8 oz Physical Exam Narrative: GENERAL: Patient is alert, awake and oriented x3. [] NECK: No jugular vein distension. [] HEENT: No cyanosis. No icterus. No pallor. [] HEART: Regular S1 and S2. No murmur, rub or gallop. [] LUNGS: Diminished air entry bilaterally CENTRAL NERVOUS SYSTEM: Grossly nonfocal. [] EXTREMITIES: Lower extremities with 1+ edema bilaterally. Urinary Catheter Management: [place]: Cath Placed During This Visit: yes, but has since been removed by the nurse Reason for Continuing Indwelling Catheter: Acute Urinary Retention or Obstruction Urinary Catheter Date of Insertion: 05/20/23 Urinary Catheter Time of Insertion: 02:15 Date Urinary Catheter Removed: 05/19/23 Time Urinary Catheter Discontinued: 21:00 Data 05/24/23 03:43 05/24/23 03:43 A&P Assessment and plan (1) Ischemic cardiomyopathy: (2) ICD (implantable cardioverter-defibrillator) in place: (3) CAD (coronary artery disease): Qualifiers: Coronary Disease-Associated Artery/Lesion type: bypass graft [place] vs. transplanted heart: [place] heart Associated angina: without angina Qualified Code(s): I25.810 - Atherosclerosis of coronary artery bypass graft(s) without angina pectoris (4) CHF (congestive heart failure): (5) Atrial fibrillation: Plan Patient was overall doing well. Medical therapy for CAD. Will continue with IV diuresis. Close I&O's. Monitor renal function Beta-jose started. If blood pressure allows, can start low-dose Entresto. Replace potassium as needed Thank you for involving us with care of this patient. We will continue to follow. Please call with questions. Attestations Medical Necessity Statement*: Care expected to cross 2 midnights. Coding Level of Care Code Acute Code for [facility] Fwd Diagnoses Ischemic cardiomyopathy I25.5 ICD (implantable cardioverter-defibrillator) in place Z95.810 Coronary artery disease involving coronary bypass graft of [place] heart without angina pectoris I25.810 Coronary Disease-Associated Artery/Lesion type: bypass graft [place] vs. transplanted heart: [place] heart Associated angina: without angina CHF (congestive heart failure) I50.9 Atrial fibrillation I48.91
[2023-05-24] MEDS: DOBUTamine drip 500 MG/250 ML PREMIX 8.71000000000000085 MG IV (09:09)
--- NOTE | 2023-05-24 12:49 | P.PN_ITS ---
Subjective 2 Subjective: Seen this morning. Patient feels well. 9.5 L net negative since admission. However when she lays down she still has orthopnea. Requires 2 to 3 L of oxygen upon being supine. Potassium 3.0 today. Creatinine 1.1. Vitals/I&O/Wt Last Vital Signs Temp 98.8 F 05/24/23 10:00 Pulse 87 05/24/23 10:00 Resp 26 H 05/24/23 10:00 BP 113/90 05/24/23 10:00 Pulse Ox 93 05/24/23 10:00 O2 Del Method Room Air 05/24/23 10:00 O2 Flow Rate 3 05/24/23 06:00 05/23/23 05/24/23 05/24/23 22:59 06:59 14:59 Intake Total 600 / 1070 338.331 / 338.331 Output Total 1350 / 1700 1200 / 2900 Balance -750 / -630 -1200 / -1830 338.331 / 338.331 Weight last 48 hrs Weight 114.759 kg Weight 116.12 kg Weight 119.431 kg Physical Exam 2 Narrative: General: Alert oriented x3, patient seen in bed HEENT: Normocephalic, atraumatic, EOMI, breathing room air Cardio: RRR normal S1-S2, Respiratory: clear to auscultation b/l, no wheezes, GI: Abdomen soft, nontender, nondistended, bowel sounds + Behavior: Appropriate and cooperative Extremities: Trace+ pitting edema bilateral lower extremities Urinary Catheter Management: [place]: Cath Placed During This Visit: yes, but has since been removed by the nurse Reason for Continuing Indwelling Catheter: Acute Urinary Retention or Obstruction Urinary Catheter Date of Insertion: 05/20/23 Urinary Catheter Time of Insertion: 02:15 Date Urinary Catheter Removed: 05/19/23 Time Urinary Catheter Discontinued: 21:00 Data 05/24/23 03:43 05/24/23 03:43 A&P Assessment and plan (1) CHF (congestive heart failure): (2) CAD (coronary artery disease): Qualifiers: Coronary Disease-Associated Artery/Lesion type: bypass graft [place] vs. transplanted heart: [place] heart Associated angina: without angina Qualified Code(s): I25.810 - Atherosclerosis of coronary artery bypass graft(s) without angina pectoris (3) Atrial fibrillation: (4) ICD (implantable cardioverter-defibrillator) in place: (5) Ischemic cardiomyopathy: (6) Diabetes: (7) Chronic kidney disease: (8) High anion gap metabolic acidosis: Plan #A-fib with RVR?resolved #History of CAD, CABG x 5 #Acute decompensated on chronic congestive biventricular heart failure #Worsening heart failure, EF 10 to 15% #Diabetes mellitus type 2 #History of postop atrial fibrillation #History of ventricular tachycardia, ICD in place. #CKD, baseline creatinine unknown ? Creatinine 1.1 today. Continue to monitor. ? Check echo. Left ventricle is dilated. LV systolic function is severely reduced with EF of 10 to 15%. Grossly hypokinetic RV. Left atrial dilation Moderate mitral regurgitation Moderate to severe tricuspid regurgitation. Moderate pulmonary hypertension Pleural effusion is noted IVC appears dilated Compared to prior echocardiogram from 2017, LV systolic function has decreased significantly and is severely reduced. - stop metolazone continue dobutamine 2.5. Patient requires monitoring in icu due to increased risk of cardiac arrhythmia given high risk medication use. -Continue on potassium 40 daily - amiodarone 400 BID x7 days, then 400 daily -Continue metoprolol 25 BID ? Check BMP daily. Lasix put patient on high risk for hypokalemia. Will need to monitor ? BNP 7300. On admission. Urine culture positive for pansensitive e.coli, complete ceftriaxone x7 days ? DuoNeb every 6 hours as needed ? Patient does have elevated lactic acidosis which is most likely secondary to her worsening heart failure which carries a poor prognosis overall. ?repeat chest xray in AM ? Sliding scale insulin low-dose intensity ? Cardiac diabetic diet ? Will continue on therapeutic Lovenox at this time. - ICD interrogation confirms Afib. ? Consult cardiology. Recommendations appreciated. ? Continue ICU level care. ? Patient is net 9.5 L negative. Continue to diurese. Full code DVT prophylaxis: On therapeutic Lovenox Attestations 2 Medical Necessity Statement*: Patient is critically ill with worsening heart failure and elevated lactic acid requiring ICU stay for dobutamine drip along with Lasix for diuresis. Diagnoses CHF (congestive heart failure) I50.9 Coronary artery disease involving coronary bypass graft of [place] heart without angina pectoris I25.810 Coronary Disease-Associated Artery/Lesion type: bypass graft [place] vs. transplanted heart: [place] heart Associated angina: without angina Atrial fibrillation I48.91 ICD (implantable cardioverter-defibrillator) in place Z95.810 Ischemic cardiomyopathy I25.5 Diabetes E11.9 Chronic kidney disease N18.9 High anion gap metabolic acidosis E87.29
[2023-05-24] MEDS: cefTRIAXone 1,000 MG in sodium chloride 0.9% (plus) 50 ML 100 MG IV (13:18)
[2023-05-25] VITALS (25 sets, daily range): BP systolic 91–116; BP diastolic 62–89; PULSE 82–101; RESP 11–38; TEMP 36.4–37.1; O2SAT 91–98
[2023-05-25 04:30] LABS: Basophils % 0.3 %; Eosinophils # 0.1 10^3/uL (0.0-0.8); Eosinophils % 1.2 %; Hematocrit 36.7 % (36-47); Lymphocytes # 0.9 10^3/uL (0.8-4.8); Lymphocytes % 14.1 %; Mean Corpuscular HGB Conc 32.4 g/dL (30-55); Mean Corpuscular Volume 89.3 fl (85-98); Mean Platelet Volume 9.5 fL (7.4-10.4); Monocytes # 0.6 10^3/uL (0.2-0.9); Monocytes % 8.7 %; Neutrophils # 4.95 10^3/uL (1.8-7.7); Neutrophils % 75.2 %; Nucleated Red Blood Cells % 0 %; Platelet Count 163 10^3/cmm (157-399); Red Blood Count 4.11 10^6/uL (3.85-5.65); Red Cell Distribution Width 16.8 % (12.1-15.1); White Blood Count 6.58 10^3/uL (3.29-11.43)
[2023-05-25 04:35] LABS: Anion Gap 15.5 (5-19); Blood Urea Nitrogen 23 mg/dL (6-20); Calcium 8.4 mg/dL (8.5-10.5); Carbon Dioxide 33 mmol/L (22-29); Chloride 91 mmol/L (98-107); Creatinine Clr Calc Pharmacy 60.7669; Glomerular Filtration Rate 42.5 mL/min (90-130); Glucose 171 mg/dL (65-115); Magnesium 2.1 mg/dL (1.7-2.3); Osmolality Calculated 290 mOsm/kg (285-295); Potassium 3.5 mmol/L (3.5-5.1); Sodium 136 mmol/L (136-145)
[2023-05-25] MEDS: amiodarone 200 mg Tablet 400 MG PO ×2 (08:51→18:06)
[2023-05-25] MEDS: pantoprazole DR 40 mg Tablet PO (08:51)
[2023-05-25] MEDS: metoprolol tartrate 25 mg Tablet PO ×2 (08:51→20:41)
[2023-05-25] MEDS: FUROsemide 10 mg/mL SDV 4mL 40 MG IVP (08:51)
[2023-05-25] MEDS: potassium chloride ER 20 mEq Tablet 40 MEQ PO (08:51)
--- NOTE | 2023-05-25 09:21 | PM.PN ---
Subjective Subjective: Patient is overall doing well. no shortness of breath. Some renal function worsening noted. Vitals/I&O/Wt Last Vital Signs Temp 98.3 F 05/25/23 05:00 Pulse 88 05/25/23 09:09 Resp 16 05/25/23 09:09 BP 92/68 05/25/23 06:00 Pulse Ox 96 05/25/23 09:09 O2 Del Method Room Air 05/25/23 09:09 O2 Flow Rate 3 05/25/23 05:00 05/24/23 05/25/23 05/25/23 22:59 06:59 14:59 Intake Total 341.617 / 951.948 85.504 / 1037.452 Output Total 900 / 900 600 / 1500 Balance -558.383 / 51.948 -514.496 / -462.548 Weight last 48 hrs Weight 251 lb 4.8 oz Weight 251 lb 4.8 oz Weight 253 lb Physical Exam Narrative: GENERAL: Patient is alert, awake and oriented x3. [] NECK: No jugular vein distension. [] HEENT: No cyanosis. No icterus. No pallor. [] HEART: Regular S1 and S2. No murmur, rub or gallop. [] LUNGS: Diminished air entry bilaterally CENTRAL NERVOUS SYSTEM: Grossly nonfocal. [] EXTREMITIES: Lower extremities with 1+ edema bilaterally. Urinary Catheter Management: [place]: Cath Placed During This Visit: yes, but has since been removed by the nurse Reason for Continuing Indwelling Catheter: Accurate Measurement of Urinary Output in Critically Ill Patients Urinary Catheter Date of Insertion: 05/20/23 Urinary Catheter Time of Insertion: 02:15 Date Urinary Catheter Removed: 05/19/23 Time Urinary Catheter Discontinued: 21:00 Data 05/25/23 03:50 05/25/23 03:50 A&P Assessment and plan (1) Ischemic cardiomyopathy: (2) ICD (implantable cardioverter-defibrillator) in place: (3) CAD (coronary artery disease): Qualifiers: Coronary Disease-Associated Artery/Lesion type: bypass graft [place] vs. transplanted heart: [place] heart Associated angina: without angina Qualified Code(s): I25.810 - Atherosclerosis of coronary artery bypass graft(s) without angina pectoris (4) CHF (congestive heart failure): (5) Atrial fibrillation: Plan Patient is doing well. Medical therapy for CAD. We will switch IV Lasix to p.o. 40 mg 3 times daily today. Continue dobutamine for today. Tomorrow we will stop dobutamine. Can switch anticoagulation to Eliquis. Device check did not reveal atrial fibrillation this time however she has a history of A-fib in the past. Thank you for involving us with care of this patient. We will continue to follow. Please call with questions. Attestations Medical Necessity Statement*: Care expected to cross 2midnights. Coding Level of Care Code Acute Code for [facility] Fwd Diagnoses Ischemic cardiomyopathy I25.5 ICD (implantable cardioverter-defibrillator) in place Z95.810 Coronary artery disease involving coronary bypass graft of [place] heart without angina pectoris I25.810 Coronary Disease-Associated Artery/Lesion type: bypass graft [place] vs. transplanted heart: [place] heart Associated angina: without angina CHF (congestive heart failure) I50.9 Atrial fibrillation I48.91
--- NOTE | 2023-05-25 09:42 | P.PN_ITS ---
Subjective 2 Subjective: Seen this morning. Doing well. 10 L negative since admission Creatinine 1.3 today slightly worsened. Did have an episode of nosebleed this morning. It spontaneously stopped. Has been using oxygen overnight. Says during supine position her shortness of breath has improved. Vitals/I&O/Wt Last Vital Signs Temp 98.3 F 05/25/23 05:00 Pulse 88 05/25/23 09:09 Resp 16 05/25/23 09:09 BP 92/68 05/25/23 06:00 Pulse Ox 96 05/25/23 09:09 O2 Del Method Room Air 05/25/23 09:09 O2 Flow Rate 3 05/25/23 05:00 05/24/23 05/25/23 05/25/23 22:59 06:59 14:59 Intake Total 341.617 / 951.948 85.504 / 1037.452 Output Total 900 / 900 600 / 1500 Balance -558.383 / 51.948 -514.496 / -462.548 Weight last 48 hrs Weight 113.988 kg Weight 113.988 kg Weight 114.759 kg Physical Exam 2 Narrative: General: Alert oriented x3, patient seen in bed HEENT: Normocephalic, atraumatic, EOMI, breathing room air Cardio: RRR normal S1-S2, Respiratory: clear to auscultation b/l, no wheezes, GI: Abdomen soft, nontender, nondistended, bowel sounds + Behavior: Appropriate and cooperative Extremities: No edema bilateral lower extremities Urinary Catheter Management: [place]: Cath Placed During This Visit: yes, but has since been removed by the nurse Reason for Continuing Indwelling Catheter: Accurate Measurement of Urinary Output in Critically Ill Patients Urinary Catheter Date of Insertion: 05/20/23 Urinary Catheter Time of Insertion: 02:15 Date Urinary Catheter Removed: 05/19/23 Time Urinary Catheter Discontinued: 21:00 Data 05/25/23 03:50 05/25/23 03:50 A&P Assessment and plan (1) CHF (congestive heart failure): (2) CAD (coronary artery disease): Qualifiers: Coronary Disease-Associated Artery/Lesion type: bypass graft [place] vs. transplanted heart: [place] heart Associated angina: without angina Qualified Code(s): I25.810 - Atherosclerosis of coronary artery bypass graft(s) without angina pectoris (3) Atrial fibrillation: (4) ICD (implantable cardioverter-defibrillator) in place: (5) Ischemic cardiomyopathy: (6) Diabetes: (7) Chronic kidney disease: (8) High anion gap metabolic acidosis: Plan #A-fib with RVR?resolved #History of CAD, CABG x 5 #Acute decompensated on chronic congestive biventricular heart failure #Worsening heart failure, EF 10 to 15% #Diabetes mellitus type 2 #History of postop atrial fibrillation #History of ventricular tachycardia, ICD in place. #CKD, baseline creatinine unknown #S/P ICD ? Creatinine 1.1 today. Continue to monitor. ? Check echo. Left ventricle is dilated. LV systolic function is severely reduced with EF of 10 to 15%. Grossly hypokinetic RV. Left atrial dilation Moderate mitral regurgitation Moderate to severe tricuspid regurgitation. Moderate pulmonary hypertension Pleural effusion is noted IVC appears dilated Compared to prior echocardiogram from 2017, LV systolic function has decreased significantly and is severely reduced. - stop metolazone continue dobutamine 2.5. Patient requires monitoring in icu due to increased risk of cardiac arrhythmia given high risk medication use. -Continue on potassium 40 daily - amiodarone 400 BID x7 days, then 400 daily -Continue metoprolol 25 BID ? Check BMP daily. Lasix put patient on high risk for hypokalemia. Will need to monitor ? BNP 7300. On admission. Urine culture positive for pansensitive e.coli, complete ceftriaxone x7 day. Last date 05/28/2023 ? DuoNeb every 6 hours as needed ?repeat chest xray in AM ? Sliding scale insulin low-dose intensity ? Cardiac diabetic diet ? Switch to eliquis today. Stop therapeutic lovenox.. - ICD interrogation confirms Afib. ? Consult cardiology. Recommendations appreciated. ? Continue ICU level care. ? Patient is net 9.5 L negative. Continue to diurese. Continue lasix 40 TID. Stop dobutamine gtt in AM. Full code DVT prophylaxis: Aydeequis Attestations 2 Medical Necessity Statement*: Patient is critically ill with worsening heart failure and elevated lactic acid requiring ICU stay for dobutamine drip along with Lasix for diuresis. Diagnoses CHF (congestive heart failure) I50.9 Coronary artery disease involving coronary bypass graft of [place] heart without angina pectoris I25.810 Coronary Disease-Associated Artery/Lesion type: bypass graft [place] vs. transplanted heart: [place] heart Associated angina: without angina Atrial fibrillation I48.91 ICD (implantable cardioverter-defibrillator) in place Z95.810 Ischemic cardiomyopathy I25.5 Diabetes E11.9 Chronic kidney disease N18.9 High anion gap metabolic acidosis E87.29
[2023-05-25] MEDS: DOBUTamine drip 500 MG/250 ML PREMIX 8.71000000000000085 MG IV (10:43)
[2023-05-25] MEDS: cefTRIAXone 1,000 MG in sodium chloride 0.9% (plus) 50 ML 100 MG IV (13:48)
[2023-05-25] MEDS: FUROsemide 40 mg Tablet PO ×2 (14:57→20:42)
[2023-05-25 17:15] LABS: Glucose Point of Care 137 mg/dL (70-110)
--- NOTE | 2023-05-25 17:18 | PC.NURSE ---
Patient transferred on room air via wheelchair with daughter present, all belongings with patient. See charted stable vitals. Patient resting in chair at bedside in C[facility] room 105. 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
[2023-05-25] MEDS: apixaban 5 mg Tablet PO (20:42)
[2023-05-26] VITALS (9 sets, daily range): BP systolic 94–108; BP diastolic 63–88; PULSE 79–102; RESP 16–25; TEMP 36.3–36.8; O2SAT 91–98
[2023-05-26 05:17] LABS: Basophils % 0.3 %; Eosinophils % 0.6 %; Hematocrit 37.2 % (36-47); Lymphocytes % 13.6 %; Mean Corpuscular HGB Conc 32.8 g/dL (30-55); Mean Corpuscular Hemoglobin 29.5 pg (27-33); Mean Corpuscular Volume 89.9 fl (85-98); Mean Platelet Volume 9.9 fL (7.4-10.4); Monocytes # 0.5 10^3/uL (0.2-0.9); Monocytes % 7.6 %; Neutrophils # 5.39 10^3/uL (1.8-7.7); Neutrophils % 77.5 %; Nucleated Red Blood Cells % 0 %; Platelet Count 185 10^3/cmm (157-399); Red Blood Count 4.14 10^6/uL (3.85-5.65); Red Cell Distribution Width 16.7 % (12.1-15.1); White Blood Count 6.96 10^3/uL (3.29-11.43)
[2023-05-26 05:40] LABS: Anion Gap 15.4 (5-19); Blood Urea Nitrogen 31 mg/dL (6-20); Calcium 8.3 mg/dL (8.5-10.5); Carbon Dioxide 31 mmol/L (22-29); Chloride 90 mmol/L (98-107); Creatinine Clr Calc Pharmacy 60.5288; Glomerular Filtration Rate 42.5 mL/min (90-130); Glucose 126 mg/dL (65-115); Magnesium 2.1 mg/dL (1.7-2.3); Osmolality Calculated 284 mOsm/kg (285-295); Potassium 3.4 mmol/L (3.5-5.1); Sodium 133 mmol/L (136-145)
--- NOTE | 2023-05-26 07:37 | P.PN_ITS ---
Subjective 2 Subjective: Patient is stable. Has diuresed well. BUN worsened today. Vitals/I&O/Wt Last Vital Signs Temp 98.1 F 05/26/23 04:00 Pulse 79 05/26/23 05:39 Resp 25 H 05/26/23 04:00 BP 94/64 05/26/23 04:00 Pulse Ox 98 05/26/23 04:00 O2 Del Method Nasal Cannula 05/26/23 04:00 O2 Flow Rate 2 05/26/23 04:00 05/25/23 05/26/23 05/26/23 22:59 06:59 14:59 Output Total 100 / 900 300 / 1200 Balance -100 / -694.434 -300 / -994.434 Weight last 48 hrs Weight 250 lb 12.8 oz Weight 251 lb 4.8 oz Weight 251 lb 4.8 oz Physical Exam 2 Narrative: GENERAL: Patient is alert, awake and oriented x3. [] NECK: No jugular vein distension. [] HEENT: No cyanosis. No icterus. No pallor. [] HEART: Regular S1 and S2. No murmur, rub or gallop. [] LUNGS: Diminished air entry bilaterally CENTRAL NERVOUS SYSTEM: Grossly nonfocal. [] EXTREMITIES: Lower extremities with 1+ edema bilaterally. Urinary Catheter Management: [place]: Cath Placed During This Visit: yes, but has since been removed by the nurse Reason for Continuing Indwelling Catheter: Accurate Measurement of Urinary Output in Critically Ill Patients Urinary Catheter Date of Insertion: 05/20/23 Urinary Catheter Time of Insertion: 02:15 Date Urinary Catheter Removed: 05/19/23 Time Urinary Catheter Discontinued: 21:00 Data 05/26/23 04:39 05/26/23 04:39 A&P Assessment and plan (1) Ischemic cardiomyopathy: (2) ICD (implantable cardioverter-defibrillator) in place: (3) CAD (coronary artery disease): Qualifiers: Coronary Disease-Associated Artery/Lesion type: bypass graft [place] vs. transplanted heart: [place] heart Associated angina: without angina Qualified Code(s): I25.810 - Atherosclerosis of coronary artery bypass graft(s) without angina pectoris (4) CHF (congestive heart failure): (5) Atrial fibrillation: Plan Clinically patient is stable. Medical therapy for CAD. Will down titrate Lasix to 40 mg twice daily. Will also stop dobutamine today. BUN went up. She is saturating well on room air. Thank you for involving us with care of this patient. We will continue to follow. Please call with questions. Attestations 2 Medical Necessity Statement*: Care expected to cross 2 midnights. Coding Level of Care Code Acute Code for [facility] Fwd Diagnoses Ischemic cardiomyopathy I25.5 ICD (implantable cardioverter-defibrillator) in place Z95.810 Coronary artery disease involving coronary bypass graft of [place] heart without angina pectoris I25.810 Coronary Disease-Associated Artery/Lesion type: bypass graft [place] vs. transplanted heart: [place] heart Associated angina: without angina CHF (congestive heart failure) I50.9 Atrial fibrillation I48.91
[2023-05-26] MEDS: metoprolol tartrate 25 mg Tablet PO ×2 (08:54→21:18)
[2023-05-26] MEDS: pantoprazole DR 40 mg Tablet PO (08:55)
[2023-05-26] MEDS: amiodarone 200 mg Tablet 400 MG PO (08:55)
[2023-05-26] MEDS: apixaban 5 mg Tablet PO ×2 (08:55→21:18)
[2023-05-26 09:55] LABS: Iron 30 ug/dL (37-145); Percent Saturation 10.2 % (20-50); Total Iron Binding Capacity 292 mcg/dl; Unsaturated Iron Binding 262 ug/dL (112-347); Vitamin B12 422 pg/mL (232-1245)
[2023-05-26] MEDS: POTASSIUM CHLORIDE ER 20 MEQ TAB 2 EACH PO (09:57)
--- NOTE | 2023-05-26 09:59 | PC.NURSE ---
Dr. Lamb gave order to stop Dobutamine drip.
[2023-05-26] MEDS: fluconazole 100 mg Tablet 200 MG PO (13:32)
--- NOTE | 2023-05-26 14:04 | PM.PN ---
Subjective Subjective: Hospital course, labs appreciated. Today morning seen in cardiac stepdown unit. Laying comfortably in bed. Denies any nausea, pain, headache. Breathing is able after the patient. Complaining of lower abdominal pain the [place] catheter is not draining properly. Vitals/I&O/Wt Last Vital Signs Temp 97.7 F 05/26/23 12:00 Pulse 79 05/26/23 10:00 Resp 16 05/26/23 10:00 BP 103/69 05/26/23 12:00 Pulse Ox 95 05/26/23 10:00 O2 Del Method Room Air 05/26/23 12:00 O2 Flow Rate 2 05/26/23 04:00 05/25/23 05/26/23 05/26/23 22:59 06:59 14:59 Intake Total 321.637 / 321.637 Output Total 100 / 900 300 / 1200 Balance -100 / -694.434 -300 / -994.434 321.637 / 321.637 Weight last 48 hrs Weight 113.761 kg Weight 113.988 kg Weight 113.988 kg Physical Exam Narrative: General: Alert oriented x3, patient seen in bed, morbidly obese, laying with appropriate bed at 20 degrees without HEENT: Normocephalic, atraumatic, EOMI, breathing room air Cardio: RRR normal S1-S2, pansystolic murmur at apex the anterior axillary line, pansystolic murmur at fourth intercostal space left-sided sternal Respiratory: clear to auscultation b/l, no wheezes, GI: Abdomen soft, nontender, nondistended, bowel sounds + Behavior: Appropriate and cooperative Extremities: No edema bilateral lower extremities Urinary Catheter Management: [place]: Cath Placed During This Visit: yes, but has since been removed by the nurse Reason for Continuing Indwelling Catheter: Accurate Measurement of Urinary Output in Critically Ill Patients Urinary Catheter Date of Insertion: 05/20/23 Urinary Catheter Time of Insertion: 02:15 Date Urinary Catheter Removed: 05/19/23 Time Urinary Catheter Discontinued: 21:00 Data 05/26/23 04:39 05/26/23 04:39 A&P Assessment and plan (1) Cardiogenic shock: (2) Acute kidney injury: (3) Hypokalemia: (4) CHF (congestive heart failure): (5) CAD (coronary artery disease): Qualifiers: Coronary Disease-Associated Artery/Lesion type: bypass graft [place] vs. transplanted heart: [place] heart Associated angina: without angina Qualified Code(s): I25.810 - Atherosclerosis of coronary artery bypass graft(s) without angina pectoris (6) Atrial fibrillation: (7) ICD (implantable cardioverter-defibrillator) in place: (8) Ischemic cardiomyopathy: (9) Diabetes: (10) Chronic kidney disease: (11) High anion gap metabolic acidosis: Plan #A-fib with RVR?resolved #History of CAD, CABG x 5 #Acute decompensated on chronic congestive biventricular heart failure #EF 10 to 15% #Diabetes mellitus type 2 #History of ventricular tachycardia, ICD in place. #CKD, baseline creatinine unknown #S/P ICD Cardiogenic shock: Resolved. Patient off dobutamine drip. Monitor urine output. Mean artery pressure target over 65. Patient is euvolemic currently. Echocardiogram shows an EF of 10 to 15% with grossly hypokinetic RV, moderate MR, moderate to severe TR, moderate pulmonary hypertension, dilated IVC. Strict input output charting. Fluid restriction up to 1500 cc Patient does have worsening renal function mildly elevated. Mild hypokalemia. Continue with oral 40 mg potassium. We will replete 40 mg additionally. Patient seems euvolemic today. Hold off on diuresis for now. Will start diuresis from tomorrow. Atrial fibrillation: Currently rate controlled. Continue with metoprolol 25 mg twice daily. Ventricular arrhythmia: Most likely in setting of dobutamine. Continue with telemetry. Dobutamine off now. Hold off on amiodarone for now. Monitor electrolytes. Target potassium around 4, magnesium over 2. Appreciate cardiology recommendations. Continue with IV ceftriaxone for UTI. Appreciate urine culture. Will finish a 7-day course. Intretigo: Start on oral fluconazole 200 mg daily for 7 days. Full code Cardiac diet Fluid restriction Protonix for PUD prophylaxis Eliquis will be sufficient for DVT prophylaxis Attestations Medical Necessity Statement*: Requires further hospitalization for management of cardiogenic shock in setting of severe LV dysfunction, biventricular heart failure while dobutamine is weaned off Diagnoses Cardiogenic shock R57.0 Acute kidney injury N17.9 Hypokalemia E87.6 CHF (congestive heart failure) I50.9 Coronary artery disease involving coronary bypass graft of [place] heart without angina pectoris I25.810 Coronary Disease-Associated Artery/Lesion type: bypass graft [place] vs. transplanted heart: [place] heart Associated angina: without angina Atrial fibrillation I48.91 ICD (implantable cardioverter-defibrillator) in place Z95.810 Ischemic cardiomyopathy I25.5 Diabetes E11.9 Chronic kidney disease N18.9 High anion gap metabolic acidosis E87.29
--- NOTE | 2023-05-26 14:37 | PC.NURSE ---
patient reports feeling full bladder. Bladder scan showing upwards off 500 ml in bladder. with Meyer in place Meyer irrigated with sterile water with no resistance was unable to train the flush treed advancing Meyer with no success aggressive flushing noted small amount of sediment with no draining was able to pull back the irrigation fluid but no other amount of drainage noted meyer replaced min amount urine return noted spoke with provider plan to remove cath allow time for patient to void and check PVR if not able to void plan to straight cath with larger Meyer if unable to get any drainage to notify provider for possible further testing
[2023-05-26] MEDS: cefTRIAXone 1,000 MG in sodium chloride 0.9% (plus) 50 ML 100 MG IV (14:43)
--- NOTE | 2023-05-26 17:12 | PC.NURSE ---
Provider is notified that patient has not urinated yet. Her bladder scan read 596 and I only had a 3 drop with a straight cath, 18FR . Provider ordered a bladder ultasound and wants patient to walk around abit.
[2023-05-26 17:26] LABS: Glucose Point of Care 162 mg/dL (70-110)
[2023-05-27] VITALS (10 sets, daily range): BP systolic 96–121; BP diastolic 71–77; PULSE 78–90; RESP 13–31; TEMP 36.5–36.8; O2SAT 91–97; BMI 43.1
[2023-05-27 05:15] LABS: Basophils % 0.5 %; Eosinophils # 0.1 10^3/uL (0.0-0.8); Eosinophils % 0.6 %; Hematocrit 39.5 % (36-47); Lymphocytes # 1.3 10^3/uL (0.8-4.8); Lymphocytes % 15.5 %; Mean Corpuscular HGB Conc 32.2 g/dL (30-55); Mean Corpuscular Hemoglobin 28.8 pg (27-33); Mean Corpuscular Volume 89.6 fl (85-98); Monocytes # 0.7 10^3/uL (0.2-0.9); Monocytes % 9.1 %; Neutrophils # 5.99 10^3/uL (1.8-7.7); Neutrophils % 73.8 %; Nucleated Red Blood Cells % 0 %; Platelet Count 204 10^3/cmm (157-399); Red Blood Count 4.41 10^6/uL (3.85-5.65); Red Cell Distribution Width 16.7 % (12.1-15.1); White Blood Count 8.12 10^3/uL (3.29-11.43)
[2023-05-27 05:32] LABS: Alanine Aminotransferase 11 U/L (0-33); Albumin Level 3.5 g/dL (3.5-5.2); Alkaline Phosphatase 47 U/L (35-105); Aspartate Amino Transferase 17 U/L (0-32); Blood Urea Nitrogen 39 mg/dL (6-20); Calcium 8.5 mg/dL (8.5-10.5); Carbon Dioxide 27 mmol/L (22-29); Chloride 90 mmol/L (98-107); Creatinine Clr Calc Pharmacy 41.4047; Globulin 3.1 g/dL (1.3-4.6); Glomerular Filtration Rate 27.4 mL/min (90-130); Glucose 142 mg/dL (65-115); Osmolality Calculated 296 mOsm/kg (285-295); Sodium 137 mmol/L (136-145); Total Bilirubin 0.6 mg/dL (0.15-1.2); Total Protein 6.6 g/dL (6.6-8.7)
[2023-05-27 05:33] LABS: Magnesium 2.1 mg/dL (1.7-2.3)
--- NOTE | 2023-05-27 08:24 | P.PN_ITS ---
Subjective 2 Subjective: Patient's renal function worsened. Dobutamine was stopped yesterday. Denies shortness of breath or chest pain. Vitals/I&O/Wt Last Vital Signs Temp 98.2 F 05/27/23 07:49 Pulse 90 05/27/23 07:49 Resp 20 H 05/27/23 07:49 BP 101/75 05/27/23 07:49 Pulse Ox 91 05/27/23 07:49 O2 Del Method Room Air 05/27/23 07:49 O2 Flow Rate 2 05/26/23 04:00 05/26/23 05/27/23 05/27/23 22:59 06:59 14:59 Intake Total 50 / 371.637 Output Total 50 / 50 100 / 100 Balance 50 / 371.637 -50 / 321.637 -100 / -100 Weight last 48 hrs Weight 251 lb 2 oz Weight 251 lb 3.2 oz Weight 250 lb 12.8 oz Physical Exam 2 Narrative: GENERAL: Patient is alert, awake and oriented x3. [] NECK: No jugular vein distension. [] HEENT: No cyanosis. No icterus. No pallor. [] HEART: Regular S1 and S2. No murmur, rub or gallop. [] LUNGS: Diminished air entry bilaterally CENTRAL NERVOUS SYSTEM: Grossly nonfocal. [] EXTREMITIES: Lower extremities with 1+ edema bilaterally. Urinary Catheter Management: [place]: Cath Placed During This Visit: yes, but has since been removed by the nurse Reason for Continuing Indwelling Catheter: Accurate Measurement of Urinary Output in Critically Ill Patients Urinary Catheter Date of Insertion: 05/20/23 Urinary Catheter Time of Insertion: 02:15 Date Urinary Catheter Removed: 05/19/23 Time Urinary Catheter Discontinued: 21:00 Data 05/28/23 03:51 05/28/23 03:51 A&P Assessment and plan (1) Ischemic cardiomyopathy: (2) ICD (implantable cardioverter-defibrillator) in place: (3) CAD (coronary artery disease): Qualifiers: Coronary Disease-Associated Artery/Lesion type: bypass graft [place] vs. transplanted heart: [place] heart Associated angina: without angina Qualified Code(s): I25.810 - Atherosclerosis of coronary artery bypass graft(s) without angina pectoris (4) CHF (congestive heart failure): (5) Atrial fibrillation: Plan Patient is not having shortness of breath. Significant well. Renal function has worsened. Differentials for renal function worsening will be overdiuresis versus low cardiac output/congestion. Clinically she is not very volume overloaded. Will hold the lasix and give gentle fluid resuscitation.Monitor renal function and urine output. Thank you for involving us with care of this patient. We will continue to follow. Please call with questions. Attestations 2 Medical Necessity Statement*: Care expected to cross 2 midnights. Coding Level of Care Code Acute Code for g Fwd Diagnoses Ischemic cardiomyopathy I25.5 ICD (implantable cardioverter-defibrillator) in place Z95.810 Coronary artery disease involving coronary bypass graft of [place] heart without angina pectoris I25.810 Coronary Disease-Associated Artery/Lesion type: bypass graft [place] vs. transplanted heart: [place] heart Associated angina: without angina CHF (congestive heart failure) I50.9 Atrial fibrillation I48.91
[2023-05-27] MEDS: pantoprazole DR 40 mg Tablet PO (08:59)
[2023-05-27] MEDS: apixaban 5 mg Tablet PO ×2 (08:59→21:54)
[2023-05-27] MEDS: fluconazole 100 mg Tablet 200 MG PO (08:59)
[2023-05-27] MEDS: metoprolol tartrate 25 mg Tablet PO ×2 (08:59→21:54)
[2023-05-27] MEDS: POTASSIUM CHLORIDE ER 20 MEQ TAB 2 EACH PO (09:00)
[2023-05-27] MEDS: sodium chloride 0.9% 1,000 ML 50 ML IV (09:24)
[2023-05-27 09:45] LABS: Folate Level 2.1 ng/mL (4.8-37.3)
--- NOTE | 2023-05-27 12:28 | PM.PN ---
Subjective Subjective: No acute events overnight. Today morning patient seen walking in the hallway with her without any difficulty in breathing or chest pain. Patient states she is feeling a lot better. Denies any nausea, vomiting, headache. Decreased urine output since yesterday after stopping dobutamine drip. Vitals/I&O/Wt Last Vital Signs Temp 98.2 F 05/27/23 07:49 Pulse 89 05/27/23 09:00 Resp 20 H 05/27/23 09:00 BP 101/75 05/27/23 07:49 Pulse Ox 92 05/27/23 09:00 O2 Del Method Room Air 05/27/23 09:00 O2 Flow Rate 2 05/26/23 04:00 05/26/23 05/27/23 05/27/23 22:59 06:59 14:59 Intake Total 50 / 371.637 120 / 120 Output Total 50 / 50 100 / 100 Balance 50 / 371.637 -50 / 321.637 20 / 20 Weight last 48 hrs Weight 113.908 kg Weight 113.942 kg Weight 113.761 kg Physical Exam Narrative: General: Alert oriented x3, patient seen in bed, morbidly obese, laying with appropriate bed at 20 degrees without HEENT: Normocephalic, atraumatic, EOMI, breathing room air Cardio: RRR normal S1-S2, pansystolic murmur at apex the anterior axillary line, pansystolic murmur at fourth intercostal space left-sided sternal Respiratory: clear to auscultation b/l, no wheezes, GI: Abdomen soft, nontender, nondistended, bowel sounds + Behavior: Appropriate and cooperative Extremities: No edema bilateral lower extremities Urinary Catheter Management: [place]: Cath Placed During This Visit: yes, but has since been removed by the nurse Reason for Continuing Indwelling Catheter: Accurate Measurement of Urinary Output in Critically Ill Patients Urinary Catheter Date of Insertion: 05/20/23 Urinary Catheter Time of Insertion: 02:15 Date Urinary Catheter Removed: 05/19/23 Time Urinary Catheter Discontinued: 21:00 Data 05/27/23 04:19 05/27/23 04:19 A&P Assessment and plan (1) Cardiogenic shock: (2) Acute kidney injury: (3) Hypokalemia: (4) CHF (congestive heart failure): (5) CAD (coronary artery disease): Qualifiers: Coronary Disease-Associated Artery/Lesion type: bypass graft [place] vs. transplanted heart: [place] heart Associated angina: without angina Qualified Code(s): I25.810 - Atherosclerosis of coronary artery bypass graft(s) without angina pectoris (6) Atrial fibrillation: (7) ICD (implantable cardioverter-defibrillator) in place: (8) Ischemic cardiomyopathy: (9) Diabetes: (10) Chronic kidney disease: (11) High anion gap metabolic acidosis: Plan #A-fib with RVR?resolved #History of CAD, CABG x 5 #Acute decompensated on chronic congestive biventricular heart failure #EF 10 to 15% #Diabetes mellitus type 2 #History of ventricular tachycardia, ICD in place. #CKD, baseline creatinine unknown #S/P ICD Cardiogenic shock: Resolved. Patient off dobutamine drip. Monitor urine output. Mean artery pressure target over 65. Patient is euvolemic currently. Echocardiogram shows an EF of 10 to 15% with grossly hypokinetic RV, moderate MR, moderate to severe TR, moderate pulmonary hypertension, dilated IVC. Strict input output charting. Fluid restriction up to 1500 cc Patient has developed ANDREA with renal functions worsening. Creatinine up to 1.9 with BUN of 39 today. Could be in setting of related cardiogenic shock after stopping dobutamine versus dehydration. Patient is overall 10 L negative. Care discussed in detail with cardiology. Will plan for IV fluid with normal saline at 50 cc/h while monitoring for fluid overload. Repeat BMP in afternoon. Hold off on further diuresis for now. Atrial fibrillation: Currently rate controlled. Continue with metoprolol 25 mg twice daily. Ventricular arrhythmia: Most likely in setting of dobutamine. Continue with telemetry. Dobutamine off now. Hold off on amiodarone for now. Monitor electrolytes. Target potassium around 4, magnesium over 2. Appreciate cardiology recommendations. Continue with IV ceftriaxone for UTI. Appreciate urine culture. Will finish a 7-day course. Intretigo: Start on oral fluconazole 200 mg daily for 7 days. Full code Cardiac diet Fluid restriction Protonix for PUD prophylaxis Eliquis will be sufficient for DVT prophylaxis Attestations Medical Necessity Statement*: Patient requires further hospitalization for management of acute kidney injury in setting of cardiogenic shock in a patient with severe LV dysfunction with a EF of 10% Diagnoses Cardiogenic shock R57.0 Acute kidney injury N17.9 Hypokalemia E87.6 CHF (congestive heart failure) I50.9 Coronary artery disease involving coronary bypass graft of [place] heart without angina pectoris I25.810 Coronary Disease-Associated Artery/Lesion type: bypass graft [place] vs. transplanted heart: [place] heart Associated angina: without angina Atrial fibrillation I48.91 ICD (implantable cardioverter-defibrillator) in place Z95.810 Ischemic cardiomyopathy I25.5 Diabetes E11.9 Chronic kidney disease N18.9 High anion gap metabolic acidosis E87.29
[2023-05-27] MEDS: cefTRIAXone 1,000 MG in sodium chloride 0.9% (plus) 50 ML 100 MG IV (12:56)
--- NOTE | 2023-05-27 17:10 | US_ITS ---
WS: [id number] URINARY BLADDER ULTRASOUND HISTORY: urine retention COMPARISON: None available. Urinary bladder is minimally distended. No intraluminal filling defect. No free fluid adjacent to the urinary bladder. Bladder Prevoid: 13.4 cm x 14.3 cm x 8.7 cm. Prevoid volume: 874.9 ml. Small amount of adjacent ascites. IMPRESSION: Nondistended urinary bladder.
[2023-05-27 20:04] LABS: Anion Gap 20.4 (5-19); Blood Urea Nitrogen 46 mg/dL (6-20); Calcium 8.5 mg/dL (8.5-10.5); Carbon Dioxide 27 mmol/L (22-29); Chloride 95 mmol/L (98-107); Creatinine Clr Calc Pharmacy 43.6974; Glomerular Filtration Rate 29.2 mL/min (90-130); Glucose 142 mg/dL (65-115); Osmolality Calculated 300 mOsm/kg (285-295); Potassium 4.4 mmol/L (3.5-5.1); Sodium 138 mmol/L (136-145)
[2023-05-28] VITALS (9 sets, daily range): BP systolic 97–109; BP diastolic 66–80; PULSE 78–84; RESP 12–20; TEMP 36.4–36.7; O2SAT 92–96; BMI 43.6
[2023-05-28 04:22] LABS: Basophils % 0.5 %; Eosinophils # 0.1 10^3/uL (0.0-0.8); Eosinophils % 0.8 %; Hematocrit 39.3 % (36-47); Lymphocytes # 1.3 10^3/uL (0.8-4.8); Lymphocytes % 17.3 %; Mean Corpuscular HGB Conc 31.8 g/dL (30-55); Mean Corpuscular Hemoglobin 28.6 pg (27-33); Mean Corpuscular Volume 89.9 fl (85-98); Mean Platelet Volume 9.6 fL (7.4-10.4); Monocytes # 0.8 10^3/uL (0.2-0.9); Monocytes % 10.4 %; Neutrophils # 5.32 10^3/uL (1.8-7.7); Neutrophils % 70.5 %; Nucleated Red Blood Cells % 0 %; Platelet Count 194 10^3/cmm (157-399); Red Blood Count 4.37 10^6/uL (3.85-5.65); Red Cell Distribution Width 16.6 % (12.1-15.1); White Blood Count 7.56 10^3/uL (3.29-11.43)
[2023-05-28 04:49] LABS: Lactic Sepsis W/Reflex 1.8 mmol/L (0.5-2.2)
[2023-05-28 04:50] LABS: Magnesium 2.1 mg/dL (1.7-2.3)
[2023-05-28 04:52] LABS: Alanine Aminotransferase 10 U/L (0-33); Albumin Level 3.5 g/dL (3.5-5.2); Alkaline Phosphatase 49 U/L (35-105); Anion Gap 20.8 (5-19); Aspartate Amino Transferase 15 U/L (0-32); Blood Urea Nitrogen 52 mg/dL (6-20); Calcium 8.3 mg/dL (8.5-10.5); Carbon Dioxide 26 mmol/L (22-29); Chloride 92 mmol/L (98-107); Creatinine Clr Calc Pharmacy 41.3976; Globulin 2.9 g/dL (1.3-4.6); Glomerular Filtration Rate 27.4 mL/min (90-130); Glucose 141 mg/dL (65-115); Osmolality Calculated 296 mOsm/kg (285-295); Potassium 3.8 mmol/L (3.5-5.1); Sodium 135 mmol/L (136-145); Total Bilirubin 0.5 mg/dL (0.15-1.2); Total Protein 6.4 g/dL (6.6-8.7)
[2023-05-28] MEDS: sodium chloride 0.9% 1,000 ML 50 ML IV (05:26)
--- NOTE | 2023-05-28 08:20 | P.PN_ITS ---
Subjective 2 Subjective: Patient is doing well. No chest pain. Creatinine is stable. Vitals/I&O/Wt Last Vital Signs Temp 97.7 F 05/28/23 08:00 Pulse 79 05/28/23 08:02 Resp 16 05/28/23 08:02 BP 104/80 05/28/23 08:00 Pulse Ox 95 05/28/23 08:02 O2 Del Method Room Air 05/28/23 08:02 O2 Flow Rate 2 05/26/23 04:00 05/27/23 05/28/23 05/28/23 22:59 06:59 14:59 Intake Total 1000 / 1290 Output Total 200 / 300 400 / 700 Balance -200 / -10 600 / 590 Weight last 48 hrs Weight 254 lb 3.2 oz Weight 251 lb 2 oz Weight 251 lb 3.2 oz Physical Exam 2 Narrative: GENERAL: Patient is alert, awake and oriented x3. [] NECK: No jugular vein distension. [] HEENT: No cyanosis. No icterus. No pallor. [] HEART: Regular S1 and S2. No murmur, rub or gallop. [] LUNGS: Diminished air entry bilaterally CENTRAL NERVOUS SYSTEM: Grossly nonfocal. [] EXTREMITIES: Lower extremities with 1+ edema bilaterally. Urinary Catheter Management: [place]: Cath Placed During This Visit: yes, but has since been removed by the nurse Reason for Continuing Indwelling Catheter: Accurate Measurement of Urinary Output in Critically Ill Patients Urinary Catheter Date of Insertion: 05/20/23 Urinary Catheter Time of Insertion: 02:15 Date Urinary Catheter Removed: 05/26/23 Time Urinary Catheter Discontinued: 14:00 Data 05/29/23 03:10 05/29/23 03:10 A&P Assessment and plan (1) Ischemic cardiomyopathy: (2) ICD (implantable cardioverter-defibrillator) in place: (3) CAD (coronary artery disease): Qualifiers: Coronary Disease-Associated Artery/Lesion type: bypass graft [place] vs. transplanted heart: [place] heart Associated angina: without angina Qualified Code(s): I25.810 - Atherosclerosis of coronary artery bypass graft(s) without angina pectoris (4) CHF (congestive heart failure): (5) Atrial fibrillation: Plan Patient's renal function is stable. We will restart diuretic therapy. Nephrology recommendations appreciated. Patient can be discharged home on metoprolol 25bid, lasix 40bid. Will need outpatient labs in 4-5 days. We will start entresto as outpatient once renal function is stable. Attestations 2 Medical Necessity Statement*: Care expected to cross 2 midnights. Coding Level of Care Code Acute Code for Chg Fwd Diagnoses Ischemic cardiomyopathy I25.5 ICD (implantable cardioverter-defibrillator) in place Z95.810 Coronary artery disease involving coronary bypass graft of [place] heart without angina pectoris I25.810 Coronary Disease-Associated Artery/Lesion type: bypass graft [place] vs. transplanted heart: [place] heart Associated angina: without angina CHF (congestive heart failure) I50.9 Atrial fibrillation I48.91
[2023-05-28] MEDS: metoprolol tartrate 25 mg Tablet PO ×2 (09:02→20:06)
[2023-05-28] MEDS: pantoprazole DR 40 mg Tablet PO (09:02)
[2023-05-28] MEDS: POTASSIUM CHLORIDE ER 20 MEQ TAB 2 EACH PO (09:02)
[2023-05-28] MEDS: apixaban 5 mg Tablet PO ×2 (09:02→20:07)
[2023-05-28] MEDS: fluconazole 100 mg Tablet 200 MG PO (09:02)
--- NOTE | 2023-05-28 11:20 | P.CONIM_ITS ---
Providers/Reason For Consult 2 Consulting Physician/Specialty*: [facility]/nephrology Reason for Consult*: Acute kidney injury Attending Physician: Terrence Flores MD Primary Care Provider: Rc Rose DO History of Present Illness History of Present Illness Swati Castaneda is a 57 year old female Patient is a 57-year-old male with past medical history of coronary artery disease with coronary artery bypass grafting, history of AICD, A-fib was initially admitted to the hospital on 05/19/2023 due to volume overload. Patient reported that she gained 30 pounds. Lab data was significant for creatinine of 1.1 on presentation patient was thought to be in CHF exacerbation and was started on IV Lasix. Also was started on amiodarone drip for rapid A-fib. During the course of the last few days patient had diuresed almost 10 kg since presentation and currently appears euvolemic. Renal function has gotten worse due to aggressive diuresis creatinine of 1.9 today with a BUN of 52. Patient was on dobutamine drip. Echocardiogram showed ejection fraction of 10 to 15% which was lower than her previous evaluation. Review of Systems 2 Narrative: Other review of systems negative Medications/Allergies Home Medications Medication Instructions Recorded Confirmed Last Taken Type magnesium oxide 250 mg PO BEDTIME 09/16/22 05/19/23 3 Weeks Ago History ~04/28/23 albuterol sulfate 90 mcg/actuation 2 puff inhalation QID PRN 05/19/23 05/19/23 2 Weeks Ago History aerosol inhaler Shortness Of Breath ~05/05/23 ascorbic acid (vitamin C) 500 mg 500 mg PO DAILY 05/19/23 05/19/23 2 Weeks Ago History tablet (Vitamin C) ~05/05/23 furosemide 80 mg tablet (Lasix) 80 mg PO QAM 05/19/23 05/19/23 05/19/23 History started sat 05/17/23 potassium chloride 20 mEq 20 meq PO QAM 05/19/23 05/19/23 05/19/23 History tablet,extended release zinc acetate 50 mg (zinc) capsule 50 mg PO DAILY 05/19/23 05/19/23 2 Weeks Ago History ~05/05/23 Allergies Allergy/AdvReac Type Severity Reaction Status Date / Time Penicillins Allergy ALGY-Rash Verified 05/19/23 11:04 Current Medications Generic Name Dose Route Start Last Admin Trade Name Freq PRN Reason Stop Dose Admin Apixaban 5 mg 05/25/23 21:00 05/28/23 09:02 Apixaban 5 Mg Tablet PO 5 mg BID@0900,2100 DENA Administration Calcium Carbonate 500 mg 05/20/23 11:39 05/22/23 21:00 Calcium Carbonate 500 Mg Chew Tablet PO 500 mg Q4H PRN Administration INDIGESTION Fluconazole 200 mg 05/26/23 12:50 05/28/23 09:02 Fluconazole 100 Mg Tablet PO 06/02/23 12:49 200 mg DAILY DENA Administration Furosemide 40 mg 05/25/23 15:00 05/25/23 20:42 Furosemide 40 Mg Tablet PO 40 mg TID DENA Administration Ceftriaxone Sodium 1,000 mg/ 50 mls @ 100 mls/hr 05/21/23 13:00 05/27/23 14:02 Sodium Chloride IV 05/28/23 12:59 Infused Q24H DENA Infusion Protocol Sodium Chloride 1,000 mls @ 50 mls/hr 05/27/23 09:15 05/28/23 05:26 Sodium Chloride 0.9% IV 50 mls/hr .Q20H DENA Administration Metoprolol Tartrate 25 mg 05/23/23 21:00 05/28/23 09:02 Metoprolol Tartrate 25 Mg Tablet PO 25 mg BID@0900,2100 DENA Administration Potassium Chloride 2 each 05/26/23 09:30 05/28/23 09:02 Er 20 Meq Tab PO 2 each DAILY DENA Administration Pantoprazole Sodium 40 mg 05/20/23 09:00 05/28/23 09:[address] 40 Mg Tablet PO 40 mg DAILY DENA Administration PFSH Acute 2 PFSH: Medical History (Updated 05/26/23 @ 14:18 by Terrence Flores MD) Chronic kidney disease H/O ventricular tachycardia Postoperative atrial fibrillation CAD (coronary artery disease) Diabetes Atrial fibrillation Ischemic cardiomyopathy Surgical History S/P CABG x 5 S/P ICD (internal cardiac defibrillator) procedure Family History Other CAD (coronary artery disease) Diabetes Social History (Reviewed 05/21/23 @ 09:18 by Tim Clarke Smoking and tobacco/nicotine status: former use of tobacco/nicotine Quit status (tobacco/nicotine): has quit using Year quit tobacco: 1988 Former quit date comment: 1/4 pack per day x 1 year Alcohol intake: never Substance/Drug Use: never Vitals/I&O/Wt Last Vital Signs Temp 97.7 F 05/28/23 08:00 Pulse 79 05/28/23 08:02 Resp 16 05/28/23 08:02 BP 104/80 05/28/23 08:00 Pulse Ox 95 05/28/23 08:02 O2 Del Method Room Air 05/28/23 08:02 O2 Flow Rate 2 05/26/23 04:00 05/27/23 05/28/23 05/28/23 22:59 06:59 14:59 Intake Total 1000 / 1290 Output Total 200 / 300 400 / 700 100 / 100 Balance -200 / -10 600 / 590 -100 / -100 Weight last 48 hrs Weight 115.303 kg Weight 113.908 kg Weight 113.942 kg Physical Exam 2 Narrative: Patient is awake alert, no acute distress, on room air S1-S2 regular rate and rhythm per report Lungs clear per report No pedal edema Urinary Catheter Management: [place]: Cath Placed During This Visit: yes, but has since been removed by the nurse Reason for Continuing Indwelling Catheter: Accurate Measurement of Urinary Output in Critically Ill Patients Urinary Catheter Date of Insertion: 05/20/23 Urinary Catheter Time of Insertion: 02:15 Date Urinary Catheter Removed: 05/26/23 Time Urinary Catheter Discontinued: 14:00 Data 05/28/23 03:51 05/28/23 03:51 A&P Assessment and plan (1) Acute kidney injury: Plan 1. Acute kidney injury: Baseline creatinine around 1.1 progressively worsened to 1.9 after aggressive diuresis Patient appears euvolemic currently and diuretics are currently on hold, 10 L net negative since presentation. -Would resume oral diuretics in a.m. -Accept rise in creatinine post aggressive diuresis and should return to baseline in the next 1 to 2 weeks. -Patient should follow-up with outpatient nephrology -2 g sodium restriction and 1200 mL fluid restriction -UA on presentation has showed 3+ protein and 3+ blood will repeat UA and UPCR noted bladder ultrasound results 2. CHF with reduced ejection fraction, ejection fraction 10 to 15%, status post diuresis as above 3. Hyponatremia: Mild, monitor 4. History of A-fib Patient evaluated using audiovisual cart. Time spent 40 minutes. Consult Attestations 2 Medical Necessity Statement: per claire Coding Level of Care Code Acute Code for g Fwd Diagnoses Acute kidney injury N17.9
--- NOTE | 2023-05-28 13:41 | PM.PN ---
Subjective Subjective: No acute vents overnight. Today morning patient seen sitting up in recliner. States she is feeling fine. Denies any nausea, vomiting, headache. Remains on room air. Slept both in bed and in recliner last night. States she is able to lie down flat without difficulty breathing. Denies any chest pain. Vitals/I&O/Wt Last Vital Signs Temp 97.7 F 05/28/23 08:00 Pulse 79 05/28/23 08:02 Resp 16 05/28/23 08:02 BP 104/80 05/28/23 08:00 Pulse Ox 95 05/28/23 08:02 O2 Del Method Room Air 05/28/23 08:02 O2 Flow Rate 2 05/26/23 04:00 05/27/23 05/28/23 05/28/23 22:59 06:59 14:59 Intake Total 1000 / 1290 Output Total 200 / 300 400 / 700 100 / 100 Balance -200 / -10 600 / 590 -100 / -100 Weight last 48 hrs Weight 115.303 kg Weight 113.908 kg Weight 113.942 kg Physical Exam Narrative: General: Alert oriented x3, patient seen in bed, morbidly obese, laying with appropriate bed at 20 degrees without HEENT: Normocephalic, atraumatic, EOMI, breathing room air Cardio: RRR normal S1-S2, pansystolic murmur at apex the anterior axillary line, pansystolic murmur at fourth intercostal space left-sided sternal Respiratory: clear to auscultation b/l, no wheezes, GI: Abdomen soft, nontender, nondistended, bowel sounds + Behavior: Appropriate and cooperative Extremities: No edema bilateral lower extremities Urinary Catheter Management: [place]: Cath Placed During This Visit: yes, but has since been removed by the nurse Reason for Continuing Indwelling Catheter: Accurate Measurement of Urinary Output in Critically Ill Patients Urinary Catheter Date of Insertion: 05/20/23 Urinary Catheter Time of Insertion: 02:15 Date Urinary Catheter Removed: 05/26/23 Time Urinary Catheter Discontinued: 14:00 Data 05/28/23 03:51 05/28/23 03:51 A&P Assessment and plan (1) Cardiogenic shock: (2) Acute kidney injury: (3) Hypokalemia: (4) CHF (congestive heart failure): (5) CAD (coronary artery disease): Qualifiers: Coronary Disease-Associated Artery/Lesion type: bypass graft [place] vs. transplanted heart: [place] heart Associated angina: without angina Qualified Code(s): I25.810 - Atherosclerosis of coronary artery bypass graft(s) without angina pectoris (6) Atrial fibrillation: (7) ICD (implantable cardioverter-defibrillator) in place: (8) Ischemic cardiomyopathy: (9) Diabetes: (10) Chronic kidney disease: (11) High anion gap metabolic acidosis: Plan #A-fib with RVR?resolved #History of CAD, CABG x 5 #Acute decompensated on chronic congestive biventricular heart failure #EF 10 to 15% #Diabetes mellitus type 2 #History of ventricular tachycardia, ICD in place. #CKD, baseline creatinine unknown #S/P ICD Cardiogenic shock: Resolved. Patient off dobutamine drip. Monitor urine output. Mean artery pressure target over 65. Patient is euvolemic currently. Echocardiogram shows an EF of 10 to 15% with grossly hypokinetic RV, moderate MR, moderate to severe TR, moderate pulmonary hypertension, dilated IVC. Strict input output charting. Fluid restriction up to 1500 cc Patient has developed ANDREA with renal functions worsening. Creatinine up to 1.9 with BUN of 39 today. Could be in setting of related cardiogenic shock after stopping dobutamine versus dehydration. Patient is overall 10 L negative. Care discussed in detail with cardiology. Will plan for IV fluid with normal saline at 50 cc/h while monitoring for fluid overload. Repeat BMP in afternoon. Hold off on further diuresis for now. Atrial fibrillation: Currently rate controlled. Continue with metoprolol 25 mg twice daily. Ventricular arrhythmia: Most likely in setting of dobutamine. Continue with telemetry. Dobutamine off now. Hold off on amiodarone for now. Monitor electrolytes. Target potassium around 4, magnesium over 2. Appreciate cardiology recommendations. Continue with IV ceftriaxone for UTI. Appreciate urine culture. Will finish a 7-day course. Intretigo: Start on oral fluconazole 200 mg daily for 7 days. Full code Cardiac diet Fluid restriction Protonix for PUD prophylaxis Eliquis will be sufficient for DVT prophylaxis Plan for the day: Patient's creatinine continues to remain stable at 1.9. BUN slightly worsening today. Most likely patient's dry weight creatinine will be higher than her normal it is quite possible that she is near her baseline creatinine now though if it improves with cannot take next few weeks. Will consult nephrology for now. For now continue with gentle IV hydration with normal saline at 50 cc/h while monitoring for fluid overload. Patient so far remains on room air. Hold off on oral diuresis for 1 more day. Will plan to initiate from tomorrow. Discussed treatment plan in detail with the patient. She is agreeable. Monitor electrolytes. Attestations Medical Necessity Statement*: Requires further hospitalization for management of acute kidney injury the patient was admitted with congestive heart failure in setting of severe LV dysfunction with EF of 10% Diagnoses Cardiogenic shock R57.0 Acute kidney injury N17.9 Hypokalemia E87.6 CHF (congestive heart failure) I50.9 Coronary artery disease involving coronary bypass graft of [place] heart without angina pectoris I25.810 Coronary Disease-Associated Artery/Lesion type: bypass graft [place] vs. transplanted heart: [place] heart Associated angina: without angina Atrial fibrillation I48.91 ICD (implantable cardioverter-defibrillator) in place Z95.810 Ischemic cardiomyopathy I25.5 Diabetes E11.9 Chronic kidney disease N18.9 High anion gap metabolic acidosis E87.29
[2023-05-29 00:05] VITALS: BP 95/76; PULSE 83; RESP 21; TEMP 36.5; O2SAT 95
[2023-05-29] MEDS: sodium chloride 0.9% 1,000 ML 50 ML IV (00:59)
[2023-05-29 03:52] LABS: Basophils % 0.5 %; Eosinophils # 0.1 10^3/uL (0.0-0.8); Eosinophils % 1.6 %; Hematocrit 42.1 % (36-47); Lymphocytes # 1.5 10^3/uL (0.8-4.8); Lymphocytes % 19.7 %; Mean Corpuscular HGB Conc 30.4 g/dL (30-55); Mean Corpuscular Hemoglobin 28.7 pg (27-33); Mean Corpuscular Volume 94.4 fl (85-98); Monocytes # 0.7 10^3/uL (0.2-0.9); Monocytes % 9.7 %; Neutrophils # 5.14 10^3/uL (1.8-7.7); Neutrophils % 68.1 %; Nucleated Red Blood Cells % 0 %; Platelet Count 222 10^3/cmm (157-399); Red Blood Count 4.46 10^6/uL (3.85-5.65); Red Cell Distribution Width 16.8 % (12.1-15.1); White Blood Count 7.55 10^3/uL (3.29-11.43)
[2023-05-29 04:23] VITALS: BP 95/76; PULSE 78; RESP 12; TEMP 36.4; O2SAT 96
[2023-05-29 04:26] LABS: Alanine Aminotransferase 11 U/L (0-33); Albumin Level 3.5 g/dL (3.5-5.2); Alkaline Phosphatase 56 U/L (35-105); Aspartate Amino Transferase 18 U/L (0-32); Blood Urea Nitrogen 58 mg/dL (6-20); Calcium 8.5 mg/dL (8.5-10.5); Carbon Dioxide 22 mmol/L (22-29); Chloride 95 mmol/L (98-107); Creatinine Clr Calc Pharmacy 44.0085; Globulin 3.3 g/dL (1.3-4.6); Glomerular Filtration Rate 29.2 mL/min (90-130); Glucose 141 mg/dL (65-115); Osmolality Calculated 301 mOsm/kg (285-295); Sodium 136 mmol/L (136-145); Total Bilirubin 0.5 mg/dL (0.15-1.2); Total Protein 6.8 g/dL (6.6-8.7)
[2023-05-29 04:28] LABS: Anion Gap 23.2 (5-19); Potassium 4.2 mmol/L (3.5-5.1)
[2023-05-29 04:29] LABS: Magnesium 2.1 mg/dL (1.7-2.3)
[2023-05-29] MEDS: FUROsemide 10 mg/mL SDV 2mL 20 MG IVP (07:52)
[2023-05-29 08:00] VITALS: BP 107/83; PULSE 81; RESP 20; RESP 25; TEMP 36.3; O2SAT 92
[2023-05-29] MEDS: POTASSIUM CHLORIDE ER 20 MEQ TAB 2 EACH PO (08:20)
[2023-05-29] MEDS: fluconazole 100 mg Tablet 200 MG PO (08:21)
[2023-05-29] MEDS: metoprolol tartrate 25 mg Tablet PO (08:21)
[2023-05-29] MEDS: apixaban 5 mg Tablet PO (08:21)
[2023-05-29] MEDS: pantoprazole DR 40 mg Tablet PO (08:21)
--- NOTE | 2023-05-29 08:39 | P.PN_ITS ---
Subjective 2 Subjective: Patient is doing well. On room air Vitals/I&O/Wt Last Vital Signs Temp 97.4 F L 05/29/23 08:00 Pulse 81 05/29/23 08:00 Resp 20 H 05/29/23 08:00 BP 107/83 05/29/23 08:00 Pulse Ox 92 05/29/23 08:00 O2 Del Method Room Air 05/29/23 08:00 O2 Flow Rate 2 05/29/23 04:23 05/28/23 05/29/23 05/29/23 22:59 06:59 14:59 Intake Total 240 / 460 977.500 / 1437.500 330 / 330 Balance 240 / 360 977.500 / 1337.500 330 / 330 Weight last 48 hrs Weight 254 lb 3.2 oz Physical Exam 2 Narrative: GENERAL: Patient is alert, awake and oriented x3. [] NECK: No jugular vein distension. [] HEENT: No cyanosis. No icterus. No pallor. [] HEART: Regular S1 and S2. No murmur, rub or gallop. [] LUNGS: Diminished air entry bilaterally CENTRAL NERVOUS SYSTEM: Grossly nonfocal. [] EXTREMITIES: Lower extremities with 1+ edema bilaterally. Urinary Catheter Management: [place]: Cath Placed During This Visit: yes, but has since been removed by the nurse Reason for Continuing Indwelling Catheter: Accurate Measurement of Urinary Output in Critically Ill Patients Urinary Catheter Date of Insertion: 05/20/23 Urinary Catheter Time of Insertion: 02:15 Date Urinary Catheter Removed: 05/26/23 Time Urinary Catheter Discontinued: 14:00 Data 05/29/23 03:10 05/29/23 03:10 A&P Assessment and plan (1) Ischemic cardiomyopathy: (2) ICD (implantable cardioverter-defibrillator) in place: (3) CAD (coronary artery disease): Qualifiers: Coronary Disease-Associated Artery/Lesion type: bypass graft [place] vs. transplanted heart: [place] heart Associated angina: without angina Qualified Code(s): I25.810 - Atherosclerosis of coronary artery bypass graft(s) without angina pectoris (4) CHF (congestive heart failure): (5) Atrial fibrillation: Plan Patient is stable for discharge today. Continue metoprolol 25 mg twice daily. Lasix 40 mg p.o. twice daily. We will start Entresto as outpatient once renal function stable BMP in 4-5 days Thank you for involving us with care of this patient. We will continue to follow. Please call with questions. Attestations 2 Medical Necessity Statement*: Care expected to cross 2 midnights. Coding Level of Care Code Acute Code for Chg Fwd Diagnoses Ischemic cardiomyopathy I25.5 ICD (implantable cardioverter-defibrillator) in place Z95.810 Coronary artery disease involving coronary bypass graft of [place] heart without angina pectoris I25.810 Coronary Disease-Associated Artery/Lesion type: bypass graft [place] vs. transplanted heart: [place] heart Associated angina: without angina CHF (congestive heart failure) I50.9 Atrial fibrillation I48.91
--- NOTE | 2023-05-29 09:54 | P.DS_ITS ---
Discharge Providers Date of Admission: 05/19/23 14:17 Date of Discharge: May 29, 2023 Attending Provider at Admission: Angela Mcgraw MD Attending Provider at Discharge: Terrence Flores MD Consults: Cardiology: Dr. Tirado Teledermatology Primary Care Provider: Rc Rose DO Diagnoses at Discharge Discharge Diagnosis (1) Ischemic cardiomyopathy: Status: Acute (2) ICD (implantable cardioverter-defibrillator) in place: Status: Acute (3) CAD (coronary artery disease): Status: Acute Qualifiers: Associated angina: without angina Coronary Disease-Associated Artery/Lesion type: bypass graft [place] vs. transplanted heart: [place] heart Qualified Code(s): I25.810 - Atherosclerosis of coronary artery bypass graft(s) without angina pectoris (4) CHF (congestive heart failure): Status: Acute (5) Atrial fibrillation: Status: Acute Reason for Visit Reason for Visit: retaining fluid Brief History: History as per HPI: Swati Castaneda is a 57 year old female with past medical history of CAD, CABG x 5, EF 45 to 50%, CHF systolic, ICD in place, history of atrial fibrillation that was postop transient and did not recur thereafter presented to the hospital today with complaint of shortness of breath. She was given 60 Lasix IV in the ER. Appeared fluid overloaded and was dyspneic however not hypoxic. BNP 7300. Patient was started on amiodarone drip. Admitted to cardiac stepdown unit for further management. Patient seen in her room at this time resting comfortably in bed. No acute distress. She states that for the last 2 to 3 weeks she feels she is retaining fluid. She has gained almost 30 pounds. She saw her primary care doctor who put her on Lasix 40 daily and recently increased it to 80 last week however she says she is still retaining fluid. She went to see her primary care doctor and she was sent to the ER thereafter. Hospital Course Hospital Course Patient was admitted to the hospital for further evaluation and management of congestive heart failure. She underwent echocardiogram which showed a new EF of 10 to 15%. On admission she was found to be in congestive heart failure along with mild cardiogenic shock for which she was started on aggressive IV diuresis along with IV dobutamine. Her ICD was interrogated which was consistent with occasional episodes of A-fib with RVR. She also underwent cardiac angiogram for further workup of new low EF which showed patent PANIAGUA to LAD and diagonal, SVG jump graft to OM, SVG to RCA was occluded [place] RCA was also included. Patient was managed medically. On dobutamine drip she did have episodes of ventricular tachycardia which were managed with amiodarone. She responded well to the treatment and gradually improved. Patient was net 10 L negative and dobutamine drip was discontinued. After discontinuing dobutamine drip prior ventricular ectopy also discontinued hence amiodarone was stopped. Post diuresis and stopping dobutamine drip patient had an episode of acute kidney injury with creatinine trending up to 1.8-1.9. It is believed her ANDREA is in setting of dehydration from overdiuresis along with new equilibrium to congestive heart failure which was treated with gentle IV hydration for over 48 hours while his creatinine and oxygen supplementation remained stable. Patient has been at her baseline oxygen supplementation on room air, physical activity for last 72 hours. She has been discharged in hemodynamically stable condition on oral Lasix 40 mg twice daily along with 40 mg as needed for an increase in body weight of 5 pounds or difficulty in breathing along with Eliquis 5 mg twice daily and metoprolol 25 mg twice daily. She is to follow-up with a primary care provider earlier next week for a repeat BMP and with Tiffany Monzon from cardiology within next 2 weeks. Patient was counseled in detail about lifestyle modification with heart failure. Discharge plan discussed in detail with the patient and she verbalized understanding. Physical Exam Narrative: General: Alert oriented x3, patient seen in bed, comfortably sitting in bed without any difficulty in breathing HEENT: Normocephalic, atraumatic, EOMI, breathing room air Cardio: RRR normal S1-S2, pansystolic murmur at apex the anterior axillary line, pansystolic murmur at fourth intercostal space left-sided sternal Respiratory: clear to auscultation b/l, no wheezes, GI: Abdomen soft, nontender, nondistended, bowel sounds + Behavior: Appropriate and cooperative Extremities: No edema bilateral lower extremities Urinary Catheter Management: [place]: Cath Placed During This Visit: yes, but has since been removed by the nurse Reason for Continuing Indwelling Catheter: Accurate Measurement of Urinary Output in Critically Ill Patients Urinary Catheter Date of Insertion: 05/20/23 Urinary Catheter Time of Insertion: 02:15 Date Urinary Catheter Removed: 05/26/23 Time Urinary Catheter Discontinued: 14:00 Discharge Data Studies Completed and Pending Completed Studies During Hospitalization Category Date Time Status CT chest abdomen pelvis [[place] [id number] Cat Scan 05/19/23 15:13 Completed ] Urgent [facility]NER request for service Routine Exams 05/23/23 08:09 Completed XR chest 1V portable [id number] Stat Exams 05/19/23 11:15 Completed CV. echo complete* [id number] Stat Ultrasound 05/19/23 15:10 Completed US bladder [id number] Routine Ultrasound 05/27/23 17:10 Completed Radiology Impressions Chest/Abdomen/Pelvis CT 05/19/23 15:13 IMPRESSION: 1. Findings compatible with congestive failure and/or fluid overload. Moderate bilateral pleural effusions. 2. Mediastinal and right hilar lymphadenopathy. 3. Focal area of left ventricular wall calcification and contour abnormality suggesting prior infarct. Clinical correlation recommended. IMPRESSION: 1. No acute pathology. 2. Anasarca with moderate abdominopelvic ascites. 3. Hepatic steatosis. 4. Cholelithiasis. 5. Mild right and borderline left inguinal lymphadenopathy. Echocardiogram: CONCLUSIONS Left ventricle is dilated. LV systolic function is severely reduced with EF of 10 to 15%. Grossly hypokinetic RV. Left atrial dilation Moderate mitral regurgitation Moderate to severe tricuspid regurgitation. Moderate pulmonary hypertension Pleural effusion is noted IVC appears dilated Compared to prior echocardiogram from 2017, LV systolic function has decreased significantly and is severely reduced. Khanh Lamb MD (Electronically Signed) Final Date: 20 May 2023 Microbiology 05/19/23 23:41 Urine,Clean Catch Urine Culture - Final Escherichia coli Laboratory Results WBC 7.55 10^3/uL (3.29-11.43) 05/29/23 03:10 RBC 4.46 10^6/uL (3.85-5.65) 05/29/23 03:10 Hgb 12.80 g/dL (11.27-16.99) 05/29/23 03:10 Hct 42.1 % (36-47) 05/29/23 03:10 MCV 94.4 fl (85-98) D 05/29/23 03:10 MCH 28.7 pg (27-33) 05/29/23 03:10 MCHC 30.4 g/dL (30-55) 05/29/23 03:10 RDW 16.8 % (12.1-15.1) H 05/29/23 03:10 Plt Count 222 10^3/cmm (157-399) 05/29/23 03:10 MPV 10.0 fL (7.4-10.4) 05/29/23 03:10 Neut % (Auto) 68.1 % 05/29/23 03:10 Lymph % (Auto) 19.7 % 05/29/23 03:10 [place] % (Auto) 9.7 % 05/29/23 03:10 Eos % (Auto) 1.6 % 05/29/23 03:10 Baso % (Auto) 0.5 % 05/29/23 03:10 Neut # (Auto) 5.14 10^3/uL (1.8-7.7) 05/29/23 03:10 Lymph # (Auto) 1.5 10^3/uL (0.8-4.8) 05/29/23 03:10 [place] # (Auto) 0.7 10^3/uL (0.2-0.9) 05/29/23 03:10 Eos # (Auto) 0.1 10^3/uL (0.0-0.8) 05/29/23 03:10 Baso # (Auto) 0.0 10^3/uL (0.0-0.1) 05/29/23 03:10 Nucleated RBC % (auto) 0 % 05/29/23 03:10 Nucleated RBCs # 0.0 /100WBC 05/29/23 03:10 PT 15.70 SECONDS (12.1-14.9) H 05/19/23 11:31 INR 1.21 (0.8-1.2) H 05/19/23 11:31 Sodium 136 mmol/L (136-145) 05/29/23 03:10 Potassium 4.2 mmol/L (3.5-5.1) 05/29/23 03:10 Chloride 95 mmol/L (98-107) L 05/29/23 03:10 Carbon Dioxide 22 mmol/L (22-29) 05/29/23 03:10 Anion Gap 23.2 (5-19) H 05/29/23 03:10 BUN 58 mg/dL (6-20) H 05/29/23 03:10 Creatinine 1.8 mg/dL (0.5-0.9) H 05/29/23 03:10 GFR Calculation 29.2 mL/min (90-130) L 05/29/23 03:10 Glucose 141 mg/dL (65-115) H 05/29/23 03:10 POC Glucose 162 mg/dL (70-110) H 05/26/23 17:23 Estimat Average Glucose 154 05/19/23 11:31 Hemoglobin A1c 7.0 % (4.0-6.0) H 05/19/23 11:31 Calculated Osmolality 301 mOsm/kg (285-295) H 05/29/23 03:10 Lactic Acid 1.8 mmol/L (0.5-2.2) 05/28/23 03:51 Lactic Acid (Sepsis) 2.9 mmol/L (0.5-2.2) H 05/19/23 16:45 Calcium 8.5 mg/dL (8.5-10.5) 05/29/23 03:10 Phosphorus 4.0 mg/dL (2.5-4.5) 05/21/23 04:40 Magnesium 2.1 mg/dL (1.7-2.3) 05/29/23 03:10 Iron 30 ug/dL (37-145) L 05/26/23 04:23 TIBC 292 mcg/dl 05/26/23 04:23 % Saturation 10.2 % (20-50) L 05/26/23 04:23 Unsat Iron Binding 262 ug/dL (112-347) 05/26/23 04:23 Total Bilirubin 0.5 mg/dL (0.15-1.2) 05/29/23 03:10 AST 18 U/L (0-32) 05/29/23 03:10 ALT 11 U/L (0-33) 05/29/23 03:10 Alkaline Phosphatase 56 U/L (35-105) 05/29/23 03:10 Troponin T Baseline 32 ng/L (0-10) H 05/19/23 11:31 Troponin T 120 Minute 30.31 ng/L (0-10) H 05/19/23 13:26 Delta Troponin T -1.69 ABS# (0-10) L 05/19/23 13:26 Troponin T Hi Sens 6Hr 37.25 ng/L (0-10) H 05/19/23 18:06 Troponin T Hi Sens 6Hr Delta 5.25 ng/L (0-12) 05/19/23 18:06 NT-Pro-B Natriuret Pep 9304 pg/mL (0-125) H 05/20/23 04:10 Total Protein 6.8 g/dL (6.6-8.7) 05/29/23 03:10 Albumin 3.5 g/dL (3.5-5.2) 05/29/23 03:10 Globulin 3.3 g/dL (1.3-4.6) 05/29/23 03:10 Triglycerides 128 mg/dL (0-150) 05/19/23 11:31 Cholesterol 159 mg/dL (0-200) 05/19/23 11:31 LDL Cholesterol, Calc 96 mg/dL (50-129) 05/19/23 11:31 HDL Cholesterol 37 mg/dL (60-100) L 05/19/23 11:31 LDL/HDL Ratio 2.59 RATIO (0.00-3.22) 05/19/23 11:31 Cholesterol/HDL Ratio 4.30 mg/dL (0.0-4.40) 05/19/23 11:31 Vitamin B12 422 pg/mL (232-1245) 05/26/23 04:23 Folate 2.1 ng/mL (4.8-37.3) L 05/27/23 04:19 Procalcitonin 0.06 ng/mL (0-0.5) 05/19/23 11:31 TSH 2.19 uIU/mL (0.27-4.20) 05/19/23 11:31 Urine Color Brown (Yellow) A 05/19/23 23:41 Urine Appearance Turbid (CLEAR) A 05/19/23 23:41 Urine pH 5 (5-7) 05/19/23 23:41 Ur Specific [place] 1.025 (1.005-1.030) 05/19/23 23:41 Urine Protein 3+ (Negative) H 05/19/23 23:41 Urine Glucose (UA) Norm (Normal) 05/19/23 23:41 Urine Ketones 1+ (Negative) H 05/19/23 23:41 Urine Blood 3+ (Negative) H 05/19/23 23:41 Urine Nitrate Negative (Negative) 05/19/23 23:41 Urine Bilirubin Neg (Negative) 05/19/23 23:41 Urine Urobilinogen Norm mg/dL (Negative) 05/19/23 23:41 Ur Leukocyte Esterase Negative (Negative) 05/19/23 23:41 Urine RBC Too numerous to cnt /hpf (0-2) H 05/19/23 23:41 Urine WBC 0-4 /hpf (0-5) H 05/19/23 23:41 Ur Squamous Epith Cells 0-4 /hpf (0-5) H 05/19/23 23:41 Amorphous Sediment Not Reportable 05/19/23 23:41 Urine Bacteria 1+ /hpf (NONE) H 05/19/23 23:41 RBC Casts 10-15 /lpf 05/19/23 23:41 Procedures Performed Cardiac cath: Diagnostic Findings * Left Main has no significant disease. * Mid Left Anterior Descending: chronic total occlusion, FREDA: 0 flow. * Proximal RCA has severe 95% stenosis. Mid Right Coronary Artery to Distal Right Coronary Artery: chronic total occlusion, FREDA: 0 flow. * Bypass grafts: PANIAGUA to LAD and diagonal is Patent. [place] LAD post anastamosis has diffuse disease. SVG to OMs is patent. SVG to RCA is occluded.. * Proximal Circumflex to Mid Circumflex: chronic total occlusion, FREDA: 0 flow. * Coronary angiography shows right dominance. Conclusions 1. Severe multivessel [place] CAD. PANIAGUA to LAD and diagonal is patent. SVG to OMs is patent. SVG to RCA is occluded.. 2. Patient has prior CABG. Vitals Last Vital Signs Temp 97.4 F L 05/29/23 08:00 Pulse 81 05/29/23 08:00 Resp 20 H 05/29/23 08:00 BP 107/83 05/29/23 08:00 Pulse Ox 92 05/29/23 08:00 O2 Del Method Room Air 05/29/23 08:00 O2 Flow Rate 2 05/29/23 04:23 Discharge Plan Discharge Patient Disposition: Home Condition: Stable Prescriptions: New furosemide 40 mg Tablet 40 mg PO BID@08,16 30 Days Qty: 60 0RF furosemide 40 mg Tablet 40 mg PO DAILY PRN (Reason: Increased swelling) Qty: 10 0RF fluconazole 100 mg Tablet 200 mg PO DAILY Qty: 6 0RF metoprolol tartrate 25 mg Tablet 25 mg PO BID@0900,2100 30 Days Qty: 60 0RF Eliquis 5 mg Tablet 5 mg PO BID@0900,2100 30 Days Qty: 60 0RF Continued magnesium oxide 250 mg magnesium tablet 250 mg PO BEDTIME zinc acetate 50 mg (zinc) Capsule 50 mg PO DAILY Vitamin C 500 mg Tablet 500 mg PO DAILY albuterol sulfate 90 mcg/actuation Hfa Aerosol Inhaler 2 puff INHALATION QID PRN (Reason: Shortness Of Breath) potassium chloride 20 mEq tablet extended release 20 meq PO QAM Discontinued furosemide [Lasix] 80 mg Tablet 80 mg PO QAM Discharge Orders: Discharge Order (Routine); Ordered 05/29/23 Ordered By: Terrence Flores Referrals: Tiffany Monzon FNP [Nurse Practitioner] - 06/17/23 1:30 pm Rc Rose DO [Primary Care Provider] - 06/02/23 10:45 am (Your first follow up appointment will be with Dr. Ramos on 06-02-23 at 10:[address] Rose will be out of the office all of next week. ) Discharge Diet: Cardiac Discharge Activity: Resume usual activity and Increase activity as tolerated Patient Instructions: Metoprolol (By mouth) (Lopressor, Toprol XL), Furosemide (By mouth) (Lasix), Fluconazole (By mouth) (Diflucan), Apixaban (By mouth) (Eliquis), Heart Failure (DC), Coronary Angioplasty (DC), CHF Stoplight, Opioid Safety, Post Angiogram Home Care Instructions Activity Restrictions/Additional Instructions: Restrict fluid intake to less than 1500 cc, salt intake to less than 2 g daily. Advised to check his weight daily at home. Is advised that weight today would be the dry weight and if body weight increases by around 5 pounds, patient is to take an extra dose of Lasix daily till body weight comes down to weight today. If not able to come down to dry body weight in 1 week, then is to call cardiology office for further recommendations. Patient was counseled in detail to take medications regularly as prescribed. Discharge Attestations Time Spent in Discharge Care*: greater than 30 min Specific Discharge Activities: educating patient, educating and/or supporting family/caregiver, discussing with pcp/other providers, discussing with correctional casework specialist/social workers/dc planners, documenting/other paperwork and evaluating patient/reviewing data Status at Discharge: Cognitive status at discharge: cognitively intact , Behavioral status at discharge: cooperative , Functional status at discharge: independent ambulation , Overall status at discharge: patient is back to baseline Quality Metrics Clinical Quality Measures [ No reported AMI, CVA or VTE this stay] Coding Level of Care Code 86757 Total time (in minutes) for Discharge: 60 Diagnoses Ischemic cardiomyopathy I25.5 ICD (implantable cardioverter-defibrillator) in place Z95.810 Coronary artery disease involving coronary bypass graft of [place] heart without angina pectoris I25.810 Associated angina: without angina Coronary Disease-Associated Artery/Lesion type: bypass graft [place] vs. transplanted heart: [place] heart CHF (congestive heart failure) I50.9 Atrial fibrillation I48.91
--- NOTE | 2023-05-29 10:55 | P.PN_ITS ---
Subjective 2 Subjective: feels better Medications: Reviewed: Yes Vitals/I&O/Wt Last Vital Signs Temp 97.4 F L 05/29/23 08:00 Pulse 81 05/29/23 08:00 Resp 20 H 05/29/23 08:00 BP 107/83 05/29/23 08:00 Pulse Ox 92 05/29/23 08:00 O2 Del Method Room Air 05/29/23 08:00 O2 Flow Rate 2 05/29/23 04:23 05/29/23 05/29/23 05/29/23 06:59 14:59 22:59 Intake Total 977.500 / 1437.500 330 / 330 Balance 977.500 / 1337.500 330 / 330 Weight last 48 hrs Weight 115.303 kg Physical Exam 2 Narrative: Patient is awake alert, no acute distress, on room air S1-S2 regular rate and rhythm per report Lungs clear per report No pedal edema Urinary Catheter Management: [place]: Cath Placed During This Visit: yes, but has since been removed by the nurse Reason for Continuing Indwelling Catheter: Accurate Measurement of Urinary Output in Critically Ill Patients Urinary Catheter Date of Insertion: 05/20/23 Urinary Catheter Time of Insertion: 02:15 Date Urinary Catheter Removed: 05/26/23 Time Urinary Catheter Discontinued: 14:00 Data 05/29/23 03:10 05/29/23 03:10 A&P Assessment and plan (1) Acute kidney injury: Plan 1. Acute kidney injury: Baseline creatinine around 1.1 progressively worsened to 1.9 after aggressive diuresis Patient appears euvolemic currently and diuretics are currently on hold, 10 L net negative since presentation. -Would resume oral diuretics today -Accept rise in creatinine post aggressive diuresis and should return to baseline in the next 1 to 2 weeks. -Patient should follow-up with outpatient nephrology -2 g sodium restriction and 1200 mL fluid restriction -UA on presentation has showed 3+ protein and 3+ blood will repeat UA and UPCR noted bladder ultrasound results 2. CHF with reduced ejection fraction, ejection fraction 10 to 15%, status post diuresis as above 3. Hyponatremia: Mild, monitor 4. History of A-fib Patient evaluated using audiovisual cart. Time spent 40 minutes. Attestations 2 Medical Necessity Statement*: per claire Coding Level of Care Code Acute Code for Chg Fwd Diagnoses Acute kidney injury N17.9
== END 2023-05-29 11:00 | disposition home or self-care (01) | DRG 286 ==
LOC: ER 11:23 → CSU 13:13 → ICU 05-20 08:56 → CSU 05-25 16:54
PROVIDERS: Internal Medicine; Admitting Provider Internal Medicine; Emergency Provider Emergency Medicine; PCP Internal Medicine; Visit Provider Student in an Organized Health Care Education/Training Program
PROC: 4A023N7 Measurement of Cardiac Sampling and Pressure, Left Heart, Percutaneous Approach (ICD-10-PCS; principal; 2023-05-23 09:00)
DX: I13.0 Hypertensive heart and chronic kidney disease with heart failure and stage 1 through stage 4 chronic kidney disease, or unspecified chronic kidney disease (principal); I50.23 Acute on chronic systolic (congestive) heart failure; R57.0 Cardiogenic shock; I25.810 Atherosclerosis of coronary artery bypass graft(s) without angina pectoris; E87.20 Acidosis, unspecified; I47.20 Ventricular tachycardia, unspecified; N17.9 Acute kidney failure, unspecified; E87.1 Hypo-osmolality and hyponatremia; N39.0 Urinary tract infection, site not specified; N18.9 Chronic kidney disease, unspecified; E11.22 Type 2 diabetes mellitus with diabetic chronic kidney disease; I25.10 Atherosclerotic heart disease of native coronary artery without angina pectoris; I48.91 Unspecified atrial fibrillation; I25.5 Ischemic cardiomyopathy; I25.82 Chronic total occlusion of coronary artery; Z87.891 Personal history of nicotine dependence; Z95.810 Presence of automatic (implantable) cardiac defibrillator; E87.6 Hypokalemia; E86.0 Dehydration; L30.4 Erythema intertrigo; I27.20 Pulmonary hypertension, unspecified; I08.1 Rheumatic disorders of both mitral and tricuspid valves
CPT/HCPCS: 36415; 36416; 51702; 51798; 71045; 71250; 74176; 76857; 80048; 80053; 80061; 81001; 81003; 82607; 82746; 82962; 83036; 83540; 83550; 83605; 83735; 83880; 84100; 84145; 84443; 84484; 85025; 85610; 87077; 87086; 87186; 93005; 93306; 93459; 96365; 96366; 96372; 96375; 96376; 99152; 99153; 99285; A4222; C1760; C1769; C1887; C1894; J0283; J0696; J1200; J1250; J1644; J1650; J1940; J2250; J3010; J3480; J7030; Q3014; Q9967

== ENCOUNTER → 2023-06-17 14:17 | Outpatient (BNVA) | payer OTHER, SELFPAY | PROVIDERS: PCP Internal Medicine; Visit Provider Nurse Practitioner Family | DX: I25.810 Atherosclerosis of coronary artery bypass graft(s) without angina pectoris (principal); I50.22 Chronic systolic (congestive) heart failure | CPT/HCPCS: 36415; 80048; 83880 ==

== ENCOUNTER → 2023-08-20 15:54 | Outpatient (BNVA) | payer OTHER, SELFPAY | PROVIDERS: PCP Internal Medicine; Visit Provider Internal Medicine | DX: I50.22 Chronic systolic (congestive) heart failure (principal); I25.810 Atherosclerosis of coronary artery bypass graft(s) without angina pectoris; I25.5 Ischemic cardiomyopathy; E11.9 Type 2 diabetes mellitus without complications | CPT/HCPCS: 36415; 80048; 83880 ==

== ENCOUNTER 2023-09-08 08:06 | Outpatient (CLI) | payer OTHER, SELFPAY ==
[2023-09-08 08:51] LABS: Anion Gap 15.7 (5-19); Blood Urea Nitrogen 31 mg/dL (6-20); Calcium 9.3 mg/dL (8.5-10.5); Carbon Dioxide 28 mmol/L (22-29); Chloride 104 mmol/L (98-107); Glomerular Filtration Rate 35.9 mL/min (90-130); Glucose 141 mg/dL (65-115); NT Pro B Type Natriuretic Pept 10029 pg/mL (0-125); Osmolality Calculated 305 mOsm/kg (285-295); Potassium 4.7 mmol/L (3.5-5.1); Sodium 143 mmol/L (136-145)
== END 2023-09-08 08:07 | disposition home or self-care (01) ==
LOC: LAB 08:07
PROVIDERS: PCP Internal Medicine; Visit Provider Internal Medicine
DX: I50.22 Chronic systolic (congestive) heart failure (principal); I25.810 Atherosclerosis of coronary artery bypass graft(s) without angina pectoris; I25.5 Ischemic cardiomyopathy
CPT/HCPCS: 36415; 80048; 83880

== ENCOUNTER → 2023-12-22 16:16 | Outpatient (BNVA) | payer OTHER, SELFPAY | PROVIDERS: PCP Internal Medicine; Visit Provider Internal Medicine | DX: I50.22 Chronic systolic (congestive) heart failure (principal); I25.810 Atherosclerosis of coronary artery bypass graft(s) without angina pectoris | CPT/HCPCS: 36415; 80048; 83880 ==

== ENCOUNTER 2024-07-25 13:10 | Emergency (ER) | payer OTHER, SELFPAY ==
[2024-07-25 13:18] VITALS: BP 127/85; PULSE 70; RESP 16; TEMP 36.4; O2SAT 99; BMI 34.3
--- NOTE | 2024-07-25 14:58 | ED_ITS ---
HPI - Eye Problem General: Chief complaint: Eye Problems Stated complaint: lft eye blurriness Time Seen by Provider: 07/25/24 14:08 History of Present Illness: 59-year-old female presents with left ey e vision changes. She reports that yesterday around [birth year]1929 she was driving when she got a floating line in her left eye. That throughout the day got worse to where she started having a rust vision disturbance. That today she can kind of see shadows that are alfredo but the vision is decreased a little bit more. Patient does wear glasses. She denies any trauma. Related Data Previous Rx's ?Medication ?Instructions ?Recorded furosemide 40 mg tablet 80 mg (2 x 40 mg) PO BID #36 0 tabs 10/14/23 potassium chloride 20 mEq 20 meq PO QAM #90 tabs 10/13 tablet,extended release metoprolol tartrate 25 mg tablet 25 mg PO BID #180 tab s 12/22/23 apixaban 5 mg tablet (Eliquis) 5 mg PO BID #180 tabs 0 04/09/24 sacubitril 49 mg-valsartan 51 mg 1 tab PO BID #180 tab s 04/22/24 tablet (Entresto) Allergies Allergy/AdvReac Type Severity Reaction Status Date / Time Penicillins Allergy ALGY-Rash Verified 06/21/24 10:48 Review of Systems General: Reports: 10 or more systems reviewed and unremarkable except in HPI and below Eyes: Reports: change in vision, blurry vision, blind spots and floaters PFSH ED PFSH: Medical History Chronic kidney disease H/O ventricular tachycardia Postoperative atrial fibrillation CAD (coronary artery disease) Diabetes Atrial fibrillation Ischemic cardiomyopathy Surgical History S/P CABG x 5 S/P ICD (internal cardiac defibrillator) procedure Family History Other CAD (coronary artery disease) Diabetes Social History Smoking and tobacco/nicotine status: former use of tobacco/nicotine Quit status (tobacco/nicotine): has quit using Year quit tobacco: 1988 Former quit date comment: 1/4 pack per day x 1 year Alcohol intake: never Substance/Drug Use: never Physical Exam Const: COMMON NORMALS: no acute distress, patient oriented x3 and alert Eye: COMMON NORMALS: EOMs intact bilaterally, conjunctivae normal and no scleral icterus CONJUNCTIVA: Yes conjunctivae normal Resp: COMMON NORMALS: normal respiratory effort and clear to auscultation bilaterally AUSCULTATION: clear to auscultation bilaterally Cardio: COMMON NORMALS: regular rate and regular rhythm RATE: regular rate RHYTHM: regular rhythm Extremity: COMMON NORMALS: normal to inspection, full ROM and capillary refill normal Neuro: COMMON NORMALS: patient oriented x3, moves all extremities and gait normal SENSORIUM/ORIENTATION: Yes alert Psych: COMMON NORMALS: mental status grossly normal, Normal thought process present, cooperative and normal affect THOUGHT PROCESS: Normal thought process present Skin: COMMON NORMALS: no rashes or lesions noted and turgor normal GENERAL SKIN EXAM: no rashes or lesions noted and turgor normal Course Vital Signs: Vital signs: Vital Signs Temperature 97.6 F 07/25/24 13:18 Pulse Rate 70 07/25/24 13:18 Respiratory Rate 16 07/25/24 13:18 Blood Pressure 127/85 07/25/24 13:18 Pulse Oximetry 99 07/25/24 13:18 Oxygen Delivery Me thod Room Air 07/25/24 13:18 MDM - Eye Problem Medical Decision Making Patient with concerns of vitreous hemorrhage versus retinal detachment. Called and discussed with ophthalmology on-call Dr. Stock who also discussed with retinal specialist. At this time since her symptoms are approximately 24 hours old there is no emergent indications for transfer. Patient is to follow-up with her office at 8 AM in the morning for extensive eye exam and further management based on my exam. Patient was stable and discharged home No radiology studies performed this visit Discharge Plan Discharge Patient Disposition: Home Clinical Impression: Visual disturbance of one eye, Vitreous floaters of left eye Condition: Stable Prescriptions: No Action metoprolol tartrate 25 mg tablet 25 mg PO BID Qty: 180 3RF furosemide 40 mg tablet 80 mg PO BID Qty: 360 3RF potassium chloride 20 mEq tablet extended release 20 meq PO QAM Qty: 90 3RF Eliquis 5 mg tablet 5 mg PO BID Qty: 180 1RF Entresto 49-51 mg tablet 1 tab PO BID Qty: 180 3RF Discharge Orders: Discharge ED (Routine); Ordered 07/25/24 Ordered By: [place] Sales Referrals: Cecil Stock [Referring, Opthalmology] Discharge Diet: Usual diet Discharge Activity: Resume usual activity Patient Instructions: Opioid Safety, Pain Management, Vision Problems Activity Restrictions/Additional Instructions: Please follow-up with Dr. Stock's office at 8 AM in the morning for further evaluation Print Language: Cypriot Coding Level of Care Code ED Sten[employer] for Vasquez Robledo
[2024-07-25 15:15] VITALS: BP 117/75; PULSE 57; RESP 16; O2SAT 100
== END 2024-07-25 15:14 | disposition home or self-care (01) ==
PROVIDERS: Emergency Provider Student in an Organized Health Care Education/Training Program
DX: H53.9 Unspecified visual disturbance (principal); H43.392 Other vitreous opacities, left eye; Z79.01 Long term (current) use of anticoagulants; Z87.891 Personal history of nicotine dependence; I25.10 Atherosclerotic heart disease of native coronary artery without angina pectoris; E11.22 Type 2 diabetes mellitus with diabetic chronic kidney disease; N18.9 Chronic kidney disease, unspecified; Z95.1 Presence of aortocoronary bypass graft
CPT/HCPCS: 99281

== ENCOUNTER 2024-09-16 09:46 | Outpatient (CLI) | payer OTHER, SELFPAY ==
--- NOTE | 2024-09-16 10:00 | USCV_ITS ---
LeonelSwati Age: 59 Gender: F : 1965 Exam Date: 09/16/2024 10:00 Ordering Phys: Khanh Lamb M.D ([email or web address]) Technologist: Exam Location: [facility] [place] Indication: cad mi BP: 130 / 70 HR: 57 Rhythm: Sinus Technical Quality: Adequate MEASUREMENTS (Male / Female) Normal Values 2D ECHO LV Diastolic Diameter PLAX 4.7 cm 4.2 - 5.9 / 3.9 - 5.3 cm IVS Diastolic Thickness 1.3 cm 0.6 - 1.0 / 0.6 - 0.9 cm IVS Systolic Thickness 2.0 cm LVPW Diastolic Thickness 1.3 cm 0.6 - 1.0 / 0.6 - 0.9 cm LVPW Systolic Thickness 2.0 cm LVOT Diameter 2.1 cm LV Ejection Fraction 2D Teich 45.9 % LV Ejection Fraction MOD 4C 44.3 % LV Ejection Fraction MOD 2C 33.0 % LV Ejection Fraction 2C AL 34.8 % LA Diameter 3.5 cm RA Systolic Volume 4C AL 58.0 ml RA Systolic Volume 4C MOD 53.5 ml LA Sys Volume AL 67.5 cm cubed LA Sys Volume Index AL 32.5 cm cubed/m squared Aorta at Sinotubular Diameter 2.5 cm IVC Diameter 1.6 cm M-MODE LA Ao Ratio MM 1.4 AV Cusp Separation MM 2.3 cm DOPPLER AV Peak Velocity 146.0 cm/s LVOT Peak Velocity 55.0 cm/s AV Area Cont Eq vti 1.6 cm squared AV Area Cont Eq pk 1.3 cm squared MV Peak Velocity 97.0 cm/s MV Area PHT 2.4 cm squared Mitral E to A Ratio 0.9 TR Peak Velocity 255.0 cm/s TR Peak Gradient 26.0 mmHg TV Peak E Velocity 82.0 cm/s PV Peak Velocity 91.0 cm/s FINDINGS Left Ventricle Left ventricle is normal in size. LV systolic function is severely reduced with EF of 25 to 30%. Severe global hypokinesis Right Ventricle Mildly hypokinetic. Pacemaker lead is seen Right Atrium Normal in size Left Atrium Dilated Mitral Valve Mitral valve is thickened. Trace mitral regurgitation Aortic Valve Aortic valve is thickened. No significant stenosis or regurgitation Tricuspid Valve Mild tricuspid regurgitation. RVSP is normal. Pulmonic Valve Not well-visualized Pericardium Normal Aorta Normal in size IVC Appears to be normal CONCLUSIONS LV systolic function is severely reduced with EF of 25-30%. Mildly hypokinetic RV Left atrial dilation. Mild tricuspid regurgitation. Trace mitral regurgitation Khanh Lamb MD (Electronically Signed) Final Date: 01 October 2024 11:44 S
== END 2024-09-16 09:47 | disposition home or self-care (01) ==
PROVIDERS: PCP Family Medicine; Visit Provider Internal Medicine
DX: I48.0 Paroxysmal atrial fibrillation (principal); R07.9 Chest pain, unspecified; Z01.818 Encounter for other preprocedural examination; R93.1 Abnormal findings on diagnostic imaging of heart and coronary circulation; I51.89 Other ill-defined heart diseases; Z96.89 Presence of other specified functional implants; I51.7 Cardiomegaly; I35.8 Other nonrheumatic aortic valve disorders
CPT/HCPCS: 93306